=== PATIENT | female | born 1980 | race Caucasian/White ===

== ENCOUNTER 2019-11-28 17:14 | Observation (INO) | payer OTHER ==
[2019-11-28] MEDS ORDERED: Sodium Chloride 0.9% 1000 ML 1,000 ML IV STA ×2 (17:19→17:24)
[2019-11-28] MEDS ORDERED: Sodium Chloride 0.9% 1000 ML 1,000 ML ONE ×2 (17:25→17:31)
[2019-11-28 17:30] LABS: Lactic Acid 3.3 (0.4-2.0)
[2019-11-28 17:42] LABS: Absolute Neutrophil Ct (ANC) 13.14 (1.4-6.9); BASOPHIL % 0.3 % (0.0-0.4); Basophil (Absolute #) 0.05 (0-0.4); Eosinophil % 0.9 % (0.00-5.0); Eosinophil (Absolute #) 0.15 (0-0.5); Hemoglobin 15.7 gm/dl (12.0-16.0); Lymphocyte (Absolute #) 1.47 (1.0-4.6); Lymphocytes % 9.2 % (24.0-44.0); Mean Cell Volume 94.8 fl (78-100); Mean Corpuscular Hemoglobin 32.4 pg (26-32); Mean Corpuscular Hgb Concent. 34.1 g/dl (32-36); Mean Platelet Volume 10.2 fl (6-9.5); Monocyte (Absolute #) 1.16 (0.0-1.3); Monocytes % 7.3 % (0.0-12.0); Neutrophil % 82.3 % (36.0-66.0); Platelet Count 199 K/mm3 (150-450); Red Blood Count 4.85 M/mm3 (4.1-5.4); Red Cell Distribution Width 12.4 % (11.5-14.0)
--- NOTE | 2019-11-28 17:49 | ERPHSYRPT ---
- History of Present Illness Time Seen by Provider: 11/28/19 17:47 Source: patient Exam Limitations: no limitations Patient Subjective Stated Complaint: pt brought down from [facility] for a syncopal episode while waiting to be seen, Triage Nursing Assessment: pt is moaning, eyes open,pt has not felt well for last 2 days, other in family have had the flu Physician History: pt brought down from [facility] for a syncopal episode while waiting to be seen , pt has not felt well for last 2 days, other in family have had the flu Witnessed: by family Prior Episodes: single episode today Timing/Duration: today Precipitating Factors: other (recent flu) Loss of Consciousness: brief (seconds) Charcter of event(s): felt faint, almost passed out Allergies/Adverse Reactions: No Known Drug Allergies Allergy (Unverified 11/28/19 17:26) Home Medications: Simvastatin 20 mg DAILY 11/28/19 [History] lamoTRIgine [Lamotrigine] 50 mg BID 11/28/19 [History] Hx Influenza Vaccination/Date Given: Yes Hx Pneumococcal Vaccination/Date Given: No Immunizations Up to Date: Yes - Past Medical History Pertinent Past Medical History: Yes Neurological History: Seizures Cardiac History: Congenital Heart Disease, Other - Past Surgical History Past Surgical History: Yes Cardiac: Vascular Surgery - Social History Smoking Status: Never smoker Exposure to second hand smoke: No Drug Use: none Patient Lives Alone: No - Female History Hx Last Menstrual Period: unsure Hx Now: No - Review of Systems Constitutional: Fever, Chills Eyes: No Symptoms Ears, Nose, & Throat: No Symptoms Respiratory: Cough, No Dyspnea Cardiac: No Chest Pain, No Edema, No Syncope Abdominal/Gastrointestinal: No Abdominal Pain, No Nausea, No Vomiting, No Diarrhea Genitourinary Symptoms: No Dysuria Musculoskeletal: No Back Pain, No Neck Pain Skin: No Rash Neurological: No Dizziness, No Focal Weakness, No Sensory Changes Psychological: No Symptoms Endocrine: No Symptoms All Other Systems: Reviewed and Negative Physical Exam - Nursing Vital Signs Nursing Vital Signs: Initial Vital Signs O2 Sat by Pulse Oximetry 95 11/28/19 17:29 Pain Scale Pain Intensity 0 - [place] Coma Scale Best Eye Response (David): (4) open spontaneously Best Verbal Response ([place]): (5) oriented Best Motor Response ([place]): (6) obeys commands David Total: 15 - Physical Exam General Appearance: no apparent distress, alert Eye Exam: bilateral eye: PERRL, EOMI Ears, Nose, Throat Exam: normal ENT inspection, pharynx normal, moist mucous membranes Neck Exam: normal inspection, non-tender, supple, full range of motion Respiratory: wheezing, No chest tenderness, No respiratory distress Cardiovascular: regular rate/rhythm, capillary refill <2 sec, No murmur, No pulse deficit Gastrointestinal: soft, No tenderness, No distention, No mass Back Exam: normal inspection, normal range of motion, No CVA tenderness, No vertebral tenderness Extremity Exam: normal inspection, normal range of motion, pelvis stable, No tenderness Mental Status: alert, oriented x 3, 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 Exam: normal speech, PERRL, No facial droop Coordination/Gait: normal finger to nose Motor/Sensory: no motor deficit, no sensory deficit, no pronator drift Skin Exam: normal color, warm, dry, No rash SpO2: 95 - Course Nursing assessment & vital signs reviewed: Yes EKG Interpreted by Me: Sinus Rhythm - Radiology Exams Chest X-ray Interpretation: Reviewed by me (bibasilar infiltrate) Ordered Tests: Active Orders 24 hr Category Date Time Status Focuser STAT Care 11/28/19 17:19 Active IV Insertion STAT Care 11/28/19 17:19 Active Pulse Oximetry (ED) STAT Care 11/28/19 17:19 Active Pulse Oximetry (ED) STAT Care 11/28/19 17:19 Active CHEST 1 VIEW (PORTABLE) Stat Exams 11/28/19 17:20 Taken BLOOD CULTURE Stat Lab 11/28/19 17:37 Received CBC W DIFF Stat Lab 11/28/19 17:37 Completed CMP Stat Lab 11/28/19 17:37 Completed Lactic Acid Stat Lab 11/28/19 17:19 Results Respiratory Therapy Assessment DAILY RT 11/28/19 17:19 Active Medication Summary Generic Name Dose Route Start Last Admin Trade Name Freq PRN Reason Stop Dose Admin Sodium Chloride 1,000 mls @ 999 mls/hr 11/28/19 17:19 11/28/19 17:31 Sodium Chloride 0.9% 1000 Ml IV 11/28/19 18:19 999 mls/hr .Q1H1M STA Administration Sodium Chloride 1,000 mls @ 999 mls/hr 11/28/19 17:24 Sodium Chloride 0.9% 1000 Ml IV 11/28/19 18:24 .Q1H1M STA Ceftriaxone Sodium/Dextrose 1 g in 50 mls @ 100 mls/hr 11/28/19 17:59 Rocephin 1 Gm-D5w 50 Ml Bag IV 11/28/19 18:28 STAT STA Azithromycin 500 mg in 250 mls @ 250 mls/hr 11/28/19 17:59 Zithromax 500 Mg/ 250 Ml Nacl Premix IV 11/28/19 18:58 STAT STA Discontinued Medications Generic Name Dose Route Start Last Admin Trade Name Freq PRN Reason Stop Dose Admin Sodium Chloride Confirm 11/28/19 17:25 Sodium Chloride 0.9% 1000 Ml Administered 11/28/19 17:26 Dose 1,000 mls @ ud .ROUTE .STK-MED ONE Sodium Chloride Confirm 11/28/19 17:31 Sodium Chloride 0.9% 1000 Ml Administered 11/28/19 17:32 Dose 1,000 mls @ ud .ROUTE .STK-MED ONE Oseltamivir Phosphate 75 mg 11/28/19 18:03 Tamiflu 75mg Capsule PO 11/28/19 18:04 STAT ONE Lab/Rad Data: Laboratory Result Diagrams 11/28/19 17:37 11/28/19 17:37 Laboratory Results 11/28/19 11/28/19 11/28/19 Range/Units 17:37 17:37 17:19 WBC 16.0 H (4.0-10.5) K/mm3 RBC 4.85 (4.1-5.4) M/mm3 Hgb 15.7 (12.0-16.0) gm/dl Hct 46.0 (35-47) % MCV 94.8 (78-100) fl MCH 32.4 H (26-32) pg MCHC 34.1 (32-36) g/dl RDW 12.4 (11.5-14.0) % Plt Count 199 (150-450) K/mm3 MPV 10.2 H (6-9.5) fl Gran % 82.3 H (36.0-66.0) % Eos # (Auto) 0.15 (0-0.5) Absolute Lymphs (auto) 1.47 (1.0-4.6) Absolute Monos (auto) 1.16 (0.0-1.3) Lymphocytes % 9.2 L (24.0-44.0) % Monocytes % 7.3 (0.0-12.0) % Eosinophils % 0.9 (0.00-5.0) % Basophils % 0.3 (0.0-0.4) % Absolute Granulocytes 13.14 H (1.4-6.9) Basophils # 0.05 (0-0.4) Sodium 142 (137-145) mmol/L Potassium 3.9 (3.5-5.1) mmol/L Chloride 108 H (98-107) mmol/L Carbon Dioxide 21 L (22-30) mmol/L Anion Gap 16.5 H (5-15) MEQ/L BUN 7 (7-17) mg/dL Creatinine 0.54 (0.52-1.04) mg/dL Estimated GFR > 60.0 ML/MIN Glucose 133 H (74-106) mg/dL Lactic Acid 3.3 H (0.4-2.0) Calcium 10.2 (8.4-10.2) mg/dL Total Bilirubin 0.70 (0.2-1.3) mg/dL AST 26 (14-36) U/L ALT 21 (0-35) U/L Alkaline Phosphatase 72 (38-126) U/L Serum Total Protein 8.6 H (6.3-8.2) g/dL Albumin 4.9 (3.5-5.0) g/dL - Progress Progress: improved Discussed with : Abdifatah Macdonald Counseled pt/family regarding: lab results, diagnosis, need for follow-up, rad results - Departure Departure Disposition: Observation Clinical Impression: Exposure to the flu Aspiration pneumonia Qualifiers: Aspiration pneumonia type: unspecified Laterality: bilateral Lung location: lower lobe of lung Qualified Code(s): J69.0 - Pneumonitis due to inhalation of food and vomit Condition: Fair Critical Care Time: Yes Critical Care Time(excluding separately billable procedures): Critical 30-74 mins Referrals: ISABELLE GALINDO [Primary Care Provider] -
[2019-11-28 17:53] LABS: ALBUMIN 4.9 g/dL (3.5-5.0); ALKALINE PHOSPHATASE 72 U/L (38-126); ANION GAP 16.5 MEQ/L (5-15); BLOOD UREA NITROGEN 7 mg/dL (7-17); CHLORIDE 108 mmol/L (98-107); Calcium 10.2 mg/dL (8.4-10.2); Carbon Dioxide 21 mmol/L (22-30); Creatinine 1 0.54 mg/dL (0.52-1.04); Glucose 133 mg/dL (74-106); Potassium 3.9 mmol/L (3.5-5.1); SGOT/AST 26 U/L (14-36); SGPT/ALT 21 U/L (0-35); SODIUM 142 mmol/L (137-145); Total Protein 8.6 g/dL (6.3-8.2)
[2019-11-28] MEDS ORDERED: Zithromax 500 MG/ 250 ML NaCl Premix 500 MG/250 ML IVPB IV STA (17:59)
[2019-11-28] MEDS ORDERED: ROCEPHIN 1 Gm-D5w 50 ml Bag** 1 G/50 ML IVPB IV STA (17:59)
[2019-11-28] MEDS ORDERED: Tamiflu 75MG Capsule PO ONE (18:03)
[2019-11-28] MEDS ORDERED: ROCEPHIN 1 Gm-D5w 50 ml Bag** 1 G/50 ML IVPB IV ONE (18:12)
[2019-11-28 18:13] LABS: INFLUENZA A NEGATIVE (NEGATIVE); INFLUENZA B NEGATIVE (NEGATIVE); RESPIRATORY SYNCTIAL VIRUS NEGATIVE (Negative)
[2019-11-28] MEDS: TYLENOL 325 MG PO PRN (20:55)
[2019-11-28] MEDS: Sodium Chloride 0.9% 1000 ML 1,000 ML IV SCH (20:55)
[2019-11-28] MEDS: ZOCOR 20MG PO SCH (20:56)
[2019-11-28] MEDS: lamICTAL 100MG TABLET PO SCH (20:57)
[2019-11-28] MEDS ORDERED: PROVENTIL COMMON CANISTER IH PRN (21:13)
[2019-11-28] MEDS ORDERED: MORPHINE SULFATE 4 MG INJ IV PRN (21:34)
[2019-11-28] MEDS ORDERED: Zithromax 500 MG/ 250 ML NaCl Premix 500 MG/250 ML IVPB IV SCH (22:00)
--- NOTE | 2019-11-28 22:09 | XRAY ---
Indication: Cough, congestion, and wheezing. Comparison: September 29, 2019. Portable chest demonstrates new mild right base infiltrate/atelectasis. Minimal left base fibrosis/scarring. Remaining heart and lungs unremarkable. Bony thorax intact.
[2019-11-28] MEDS ORDERED: Norco 10/325 MG Tablet PO PRN (22:36)
[2019-11-29 06:25] LABS: Absolute Neutrophil Ct (ANC) 7.04 (1.4-6.9); BASOPHIL % 0.2 % (0.0-0.4); Basophil (Absolute #) 0.02 (0-0.4); Eosinophil % 0.8 % (0.00-5.0); Eosinophil (Absolute #) 0.07 (0-0.5); Hematocrit 40.1 % (35-47); Hemoglobin 13.3 gm/dl (12.0-16.0); Lymphocyte (Absolute #) 0.85 (1.0-4.6); Mean Cell Volume 97.6 fl (78-100); Mean Corpuscular Hemoglobin 32.4 pg (26-32); Mean Corpuscular Hgb Concent. 33.2 g/dl (32-36); Mean Platelet Volume 10.1 fl (6-9.5); Monocyte (Absolute #) 0.56 (0.0-1.3); Monocytes % 6.6 % (0.0-12.0); Neutrophil % 82.4 % (36.0-66.0); Platelet Count 162 K/mm3 (150-450); Red Blood Count 4.11 M/mm3 (4.1-5.4); Red Cell Distribution Width 12.3 % (11.5-14.0); White Blood Count 8.5 K/mm3 (4.0-10.5)
[2019-11-29 06:43] LABS: ANION GAP 9.4 MEQ/L (5-15); BLOOD UREA NITROGEN 3 mg/dL (7-17); CHLORIDE 113 mmol/L (98-107); Calcium 8.5 mg/dL (8.4-10.2); Carbon Dioxide 22 mmol/L (22-30); Creatinine 1 0.51 mg/dL (0.52-1.04); Glucose 115 mg/dL (74-106); Potassium 3.7 mmol/L (3.5-5.1); SODIUM 141 mmol/L (137-145)
--- NOTE | 2019-11-29 09:26 | PCM.HP ---
History of Present Illness - Chief Complaint Chief Complaint: Pneumonia History of Present Illness: is a 39 year old female with a 2 day history of cough with green sputum and feeling poorly, no known fever. she was waiting yesterday to be seen in [place] and passed out, she states this has happened in the past with pneumonia. She has a history of asthma, states she is a nonsmoker and has had multiple bouts of pneumonia in the past. - Review of Systems Constitutional: No Fever, No Chills Respiratory: Cough, Short Of Breath Cardiac: Chest Pain, Syncope Abdominal/Gastrointestinal: No Abdominal Pain, No Nausea, No Vomiting, No Diarrhea Skin: No Rash All Other Systems: Reviewed and Negative Medications & Allergies Home Medications: Home Medication List Simvastatin 20 mg PO HS 11/28/19 [History Confirmed 11/28/19] lamoTRIgine [Lamotrigine] 100 mg PO BID 11/28/19 [History Confirmed 11/28/19] Allergies/Adverse Reactions: Allergies Allergy/AdvReac Type Severity Reaction Status Date / Time No Known Drug Allergies Allergy Unverified 11/28/19 17:26 - Past Medical History Past Medical History: Yes Neurological History: Seizures ENT History: No Pertinent History Cardiac History: Congenital Heart Disease, Other Respiratory History: Pneumonia Endocrine Medical History: No Pertinent History Musculoskelatal History: Arthritis GI Medical History: No Pertinent History History: No Pertinent History Pyscho-Social History: No Pertinent History Reproductive Disorders: Endometriosis - Female History Hx Last Menstrual Period: August 2019 Are you now?: No - Past Surgical History Past Surgical History: Yes Neuro Surgical History: No Pertinent History Cardiac History: Vascular Surgery Respiratory Surgery: No Pertinent History GI Surgical History: No Pertinent History Genitourinary Surgical Hx: No Pertinent History Musculskeletal Surgical Hx: No Pertinent History Female Surgical History: No Pertinent History - Social History Smoking Status: Never smoker Exposure to second hand smoke: No Alcohol: None Drug Use: none - Physical Exam Vital Signs: Vital Signs - 24 hr Temp Pulse Resp BP Pulse Ox 11/29/19 07:56 96 11/29/19 07:16 98.7 F 100 H 18 109/59 98 11/29/19 03:51 99.1 F 99 H 12 98/53 92 L 11/28/19 23:44 99.7 F 118 H 22 109/68 93 L 12/28/19 21:14 119 H 20 94 L 12/28/19 20:00 100.1 F 122 H 19 115/61 96 11/28/19 19:54 100.1 F 122 H 19 115/61 96 11/28/19 18:11 95 11/28/19 17:29 95 Oxygen-Last 24 hours O2 Percentage 2 Liters = 28% General Appearance: no apparent distress Neurologic Exam: alert, oriented x 3 Respiratory Exam: rhonchi Cardiovascular Exam: regular rate/rhythm, normal heart sounds, normal peripheral pulses Gastrointestinal/Abdomen Exam: soft, normal bowel sounds, No tenderness, No mass Extremity Exam: normal inspection, normal range of motion, pelvis stable Skin Exam: normal color, warm, dry, No rash Results - Labs Lab/Micro Results: Lab Results-Last 24 Hours 11/28/19 11/28/19 11/28/19 Range/Units 17:19 17:37 17:37 WBC 16.0 H (4.0-10.5) K/mm3 RBC 4.85 (4.1-5.4) M/mm3 Hgb 15.7 (12.0-16.0) gm/dl Hct 46.0 (35-47) % MCV 94.8 (78-100) fl MCH 32.4 H (26-32) pg MCHC 34.1 (32-36) g/dl RDW 12.4 (11.5-14.0) % Plt Count 199 (150-450) K/mm3 MPV 10.2 H (6-9.5) fl Gran % 82.3 H (36.0-66.0) % Eos # (Auto) 0.15 (0-0.5) Absolute Lymphs (auto) 1.47 (1.0-4.6) Absolute Monos (auto) 1.16 (0.0-1.3) Lymphocytes % 9.2 L (24.0-44.0) % Monocytes % 7.3 (0.0-12.0) % Eosinophils % 0.9 (0.00-5.0) % Basophils % 0.3 (0.0-0.4) % Absolute Granulocytes 13.14 H (1.4-6.9) Basophils # 0.05 (0-0.4) D-Dimer (215-500) ng/mL Sodium 142 (137-145) mmol/L Potassium 3.9 (3.5-5.1) mmol/L Chloride 108 H (98-107) mmol/L Carbon Dioxide 21 L (22-30) mmol/L Anion Gap 16.5 H (5-15) MEQ/L BUN 7 (7-17) mg/dL Creatinine 0.54 (0.52-1.04) mg/dL Estimated GFR > 60.0 ML/MIN Glucose 133 H (74-106) mg/dL Lactic Acid 3.3 H (0.4-2.0) Calcium 10.2 (8.4-10.2) mg/dL Total Bilirubin 0.70 (0.2-1.3) mg/dL AST 26 (14-36) U/L ALT 21 (0-35) U/L Alkaline Phosphatase 72 (38-126) U/L Troponin I (0.000-0.034) ng/mL Serum Total Protein 8.6 H (6.3-8.2) g/dL Albumin 4.9 (3.5-5.0) g/dL Influenza Type A Ag (NEGATIVE) Influenza Type B Ag (NEGATIVE) RSV (PCR) (Negative) 11/28/19 11/28/19 11/28/19 Range/Units 17:37 19:40 21:46 WBC (4.0-10.5) K/mm3 RBC (4.1-5.4) M/mm3 Hgb (12.0-16.0) gm/dl Hct (35-47) % MCV (78-100) fl MCH (26-32) pg MCHC (32-36) g/dl RDW (11.5-14.0) % Plt Count (150-450) K/mm3 MPV (6-9.5) fl Gran % (36.0-66.0) % Eos # (Auto) (0-0.5) Absolute Lymphs (auto) (1.0-4.6) Absolute Monos (auto) (0.0-1.3) Lymphocytes % (24.0-44.0) % Monocytes % (0.0-12.0) % Eosinophils % (0.00-5.0) % Basophils % (0.0-0.4) % Absolute Granulocytes (1.4-6.9) Basophils # (0-0.4) D-Dimer (215-500) ng/mL Sodium (137-145) mmol/L Potassium (3.5-5.1) mmol/L Chloride (98-107) mmol/L Carbon Dioxide (22-30) mmol/L Anion Gap (5-15) MEQ/L BUN (7-17) mg/dL Creatinine (0.52-1.04) mg/dL Estimated GFR ML/MIN Glucose (74-106) mg/dL Lactic Acid 1.5 (0.4-2.0) Calcium (8.4-10.2) mg/dL Total Bilirubin (0.2-1.3) mg/dL AST (14-36) U/L ALT (0-35) U/L Alkaline Phosphatase (38-126) U/L Troponin I < 0.012 (0.000-0.034) ng/mL Serum Total Protein (6.3-8.2) g/dL Albumin (3.5-5.0) g/dL Influenza Type A Ag NEGATIVE (NEGATIVE) Influenza Type B Ag NEGATIVE (NEGATIVE) RSV (PCR) NEGATIVE (Negative) 11/28/19 11/29/19 11/29/19 Range/Units 21:46 06:02 06:02 WBC 8.5 (4.0-10.5) K/mm3 RBC 4.11 (4.1-5.4) M/mm3 Hgb 13.3 (12.0-16.0) gm/dl Hct 40.1 (35-47) % MCV 97.6 (78-100) fl MCH 32.4 H (26-32) pg MCHC 33.2 (32-36) g/dl RDW 12.3 (11.5-14.0) % Plt Count 162 (150-450) K/mm3 MPV 10.1 H (6-9.5) fl Gran % 82.4 H (36.0-66.0) % Eos # (Auto) 0.07 (0-0.5) Absolute Lymphs (auto) 0.85 L (1.0-4.6) Absolute Monos (auto) 0.56 (0.0-1.3) Lymphocytes % 10.0 L (24.0-44.0) % Monocytes % 6.6 (0.0-12.0) % Eosinophils % 0.8 (0.00-5.0) % Basophils % 0.2 (0.0-0.4) % Absolute Granulocytes 7.04 H (1.4-6.9) Basophils # 0.02 (0-0.4) D-Dimer 451 (215-500) ng/mL Sodium 141 (137-145) mmol/L Potassium 3.7 (3.5-5.1) mmol/L Chloride 113 H (98-107) mmol/L Carbon Dioxide 22 (22-30) mmol/L Anion Gap 9.4 (5-15) MEQ/L BUN 3 L (7-17) mg/dL Creatinine 0.51 L (0.52-1.04) mg/dL Estimated GFR > 60.0 ML/MIN Glucose 115 H (74-106) mg/dL Lactic Acid (0.4-2.0) Calcium 8.5 D (8.4-10.2) mg/dL Total Bilirubin (0.2-1.3) mg/dL AST (14-36) U/L ALT (0-35) U/L Alkaline Phosphatase (38-126) U/L Troponin I (0.000-0.034) ng/mL Serum Total Protein (6.3-8.2) g/dL Albumin (3.5-5.0) g/dL Influenza Type A Ag (NEGATIVE) Influenza Type B Ag (NEGATIVE) RSV (PCR) (Negative) - Radiology Impressions Radiology Exams & Impressions: Radiology Procedures Category Date Time Status CHEST 1 VIEW (PORTABLE) Stat Exams 11/28/19 17:20 Completed CHEST 2 VIEWS (PA AND LAT) Routine Exams 11/29/19 18:49 Ordered - Other Procedures and Tests Respiratory Therapy 11/28/19 21:12 Flutter Therapy UD Incentive Spirometry UD Assessment/Plan (1) Pneumonia Current Visit: Yes Status: Acute Assessment & Plan: continue rocephin and zithromax, had severe pleuritic chest pain last night but better today. ekg unremarkable and d-dimer and troponin were negative. Code(s): J18.9 - PNEUMONIA, UNSPECIFIED ORGANISM (2) Syncope Current Visit: Yes Status: Acute Code(s): R55 - SYNCOPE AND COLLAPSE
[2019-11-29] MEDS: lamICTAL 100MG TABLET PO SCH ×2 (09:28→21:38)
[2019-11-29] MEDS ORDERED: Zithromax 500 MG/ 250 ML NaCl Premix 250 ML IV SCH (10:00)
[2019-11-29] MEDS ORDERED: ROCEPHIN 1 Gm-D5w 50 ml Bag** 1 G/50 ML IVPB IV SCH (18:00)
[2019-11-29] MEDS: TYLENOL 325 MG PO PRN (20:02)
--- NOTE | 2019-11-29 20:16 | XRAY ---
Indication: Fever and cough. Comparison: One day earlier. PA/lateral chest demonstrate stable right base infiltrate/atelectasis, left base fibrosis/scarring, and coils overlying the aortic arch. New tiny nonspecific left effusion. Remaining heart, upper lungs, and bony thorax normal. Comment: Preliminary interpretation was made by [facility]. No critical discrepancy.
[2019-11-29] MEDS: ZOCOR 20MG PO SCH (21:38)
[2019-11-30] MEDS: Sodium Chloride 0.9% 1000 ML 1,000 ML IV SCH ×2 (00:55→03:02)
[2019-11-30 05:28] LABS: Absolute Neutrophil Ct (ANC) 6.61 (1.4-6.9); BASOPHIL % 0.4 % (0.0-0.4); Basophil (Absolute #) 0.03 (0-0.4); Eosinophil % 0.4 % (0.00-5.0); Eosinophil (Absolute #) 0.03 (0-0.5); Lymphocyte (Absolute #) 1.05 (1.0-4.6); Lymphocytes % 12.6 % (24.0-44.0); Mean Corpuscular Hemoglobin 32.3 pg (26-32); Mean Corpuscular Hgb Concent. 33.3 g/dl (32-36); Mean Platelet Volume 9.6 fl (6-9.5); Monocyte (Absolute #) 0.61 (0.0-1.3); Monocytes % 7.3 % (0.0-12.0); Neutrophil % 79.3 % (36.0-66.0); Platelet Count 164 K/mm3 (150-450); Red Blood Count 4.33 M/mm3 (4.1-5.4); Red Cell Distribution Width 12.5 % (11.5-14.0); White Blood Count 8.3 K/mm3 (4.0-10.5)
[2019-11-30 05:44] LABS: CHLORIDE 107 mmol/L (98-107); Calcium 9.2 mg/dL (8.4-10.2); Carbon Dioxide 24 mmol/L (22-30); Creatinine 1 0.53 mg/dL (0.52-1.04); Glucose 115 mg/dL (74-106); Potassium 3.8 mmol/L (3.5-5.1); SODIUM 140 mmol/L (137-145)
[2019-11-30 05:53] LABS: BLOOD UREA NITROGEN 2 mg/dL (7-17)
--- NOTE | 2019-11-30 08:25 | PCM.NOTE ---
Date and Time: 11/30/19823 Subjective Assessment: patient is feeling better today, still requiring oxygen but pain in her chest is much improved Objective Exam General Appearance: no apparent distress, mild distress Neurologic Exam: alert, oriented x 3 Respiratory Exam: wheezing Cardiovascular Exam: regular rate/rhythm, normal heart sounds Gastrointestinal/Abdomen Exam: soft, No tenderness, No mass OBJECTIVE DATA Vital Signs: Vital Signs - 24 hr Temp Pulse Resp BP Pulse Ox 11/30/19 07:15 98.8 F 101 H 18 129/65 98 11/30/19 03:38 99.1 F 108 H 18 121/75 94 L 11/30/19 00:00 99.2 F 106 H 16 121/65 93 L 11/29/19 20:25 92 L 11/29/19 19:55 100.6 F 116 H 28 H 120/67 92 L 11/29/19 16:00 98.6 F 90 18 118/64 93 L 11/29/19 12:50 98.7 F 98 H 18 121/65 95 Oxygen-Last 24 hours O2 Percentage 2 Liters = 28% O2 Percentage 2 Liters = 28% Pain Assessment - Last Documented Pain Intensity 0 Pain Scale Used 0-10 Pain Scale Intake and Output: Intake & Output 11/27/19 11/28/19 11/29/19 11/30/19 11:59 11:59 11:59 11:59 Intake Total 1415 2016 Output Total 400 1150 Balance 1015 866 Weight 55.6 kg Lab Results: Lab Results-Last 24 Hours 11/30/19 11/30/19 Range/Units 05:23 05:23 WBC 8.3 (4.0-10.5) K/mm3 RBC 4.33 (4.1-5.4) M/mm3 Hgb 14.0 (12.0-16.0) gm/dl Hct 42.0 (35-47) % MCV 97.0 (78-100) fl MCH 32.3 H (26-32) pg MCHC 33.3 (32-36) g/dl RDW 12.5 (11.5-14.0) % Plt Count 164 (150-450) K/mm3 MPV 9.6 H (6-9.5) fl Gran % 79.3 H (36.0-66.0) % Eos # (Auto) 0.03 (0-0.5) Absolute Lymphs (auto) 1.05 (1.0-4.6) Absolute Monos (auto) 0.61 (0.0-1.3) Lymphocytes % 12.6 L (24.0-44.0) % Monocytes % 7.3 (0.0-12.0) % Eosinophils % 0.4 (0.00-5.0) % Basophils % 0.4 (0.0-0.4) % Absolute Granulocytes 6.61 (1.4-6.9) Basophils # 0.03 (0-0.4) Sodium 140 (137-145) mmol/L Potassium 3.8 (3.5-5.1) mmol/L Chloride 107 (98-107) mmol/L Carbon Dioxide 24 (22-30) mmol/L Anion Gap 12.0 (5-15) MEQ/L BUN 2 L (7-17) mg/dL Creatinine 0.53 (0.52-1.04) mg/dL Estimated GFR > 60.0 ML/MIN Glucose 115 H (74-106) mg/dL Calcium 9.2 (8.4-10.2) mg/dL Radiology Exams: Radiology Procedures Category Date Time Status CHEST 1 VIEW (PORTABLE) Stat Exams 11/28/19 17:20 Completed CHEST 2 VIEWS (PA AND LAT) Routine Exams 11/29/19 18:49 Completed Assessment/Plan (1) Pneumonia Current Visit: Yes Status: Acute Assessment & Plan: continue rocephin/zithromax Code(s): J18.9 - PNEUMONIA, UNSPECIFIED ORGANISM (2) Asthma exacerbation Current Visit: Yes Status: Acute Assessment & Plan: add po prednisone, home when weaned from oxygen. Code(s): J45.901 - UNSPECIFIED ASTHMA WITH (ACUTE) EXACERBATION (3) Syncope Current Visit: Yes Status: Acute Code(s): R55 - SYNCOPE AND COLLAPSE
[2019-11-30] MEDS ORDERED: DELTASONE 20 MG PO SCH (10:00)
[2019-11-30] MEDS: lamICTAL 100MG TABLET PO SCH (10:14)
--- NOTE | 2019-11-30 12:27 | PCM.DS ---
Discharge Summary Date of Admission: 11/28/19 18:43 Admitting Physician: STUART ROBIN Primary Care Provider: ISABELLE GALINDO Allergies Allergies No Known Drug Allergies Allergy (Unverified 11/28/19 17:26) Hospital Summary - Hospital Course Hospital Course: patient was admitted with cough, shortness of breath and chest pain. treated for pneumonia and asthma exacerbation, feeling much better and off of oxygen therapy today and felt ready for discharge. - Vitals & Intake/Output Vital Signs: Vital Signs Temperature 98.8 F 11/30/19 07:15 Pulse Rate 101 H 11/30/19 07:15 Respiratory Rate 18 11/30/19 07:15 Blood Pressure 129/65 11/30/19 07:15 O2 Sat by Pulse Oximetry 97 11/30/19 11:35 Oxygen-Last Documented O2 Percentage 2 Liters = 28% Intake & Output: Intake & Output 11/28/19 11/29/19 11/30/19 12/01/19 11:59 11:59 11:59 11:59 Intake Total 1415 2256 Output Total 400 1500 Balance 1015 756 Weight 55.6 kg - Lab Result Diagrams: 11/30/19 05:23 11/30/19 05:23 Lab Results-Last 24 Hrs: Lab Results-Last 24 Hours 11/30/19 11/30/19 Range/Units 05:23 05:23 WBC 8.3 (4.0-10.5) K/mm3 RBC 4.33 (4.1-5.4) M/mm3 Hgb 14.0 (12.0-16.0) gm/dl Hct 42.0 (35-47) % MCV 97.0 (78-100) fl MCH 32.3 H (26-32) pg MCHC 33.3 (32-36) g/dl RDW 12.5 (11.5-14.0) % Plt Count 164 (150-450) K/mm3 MPV 9.6 H (6-9.5) fl Gran % 79.3 H (36.0-66.0) % Eos # (Auto) 0.03 (0-0.5) Absolute Lymphs (auto) 1.05 (1.0-4.6) Absolute Monos (auto) 0.61 (0.0-1.3) Lymphocytes % 12.6 L (24.0-44.0) % Monocytes % 7.3 (0.0-12.0) % Eosinophils % 0.4 (0.00-5.0) % Basophils % 0.4 (0.0-0.4) % Absolute Granulocytes 6.61 (1.4-6.9) Basophils # 0.03 (0-0.4) Sodium 140 (137-145) mmol/L Potassium 3.8 (3.5-5.1) mmol/L Chloride 107 (98-107) mmol/L Carbon Dioxide 24 (22-30) mmol/L Anion Gap 12.0 (5-15) MEQ/L BUN 2 L (7-17) mg/dL Creatinine 0.53 (0.52-1.04) mg/dL Estimated GFR > 60.0 ML/MIN Glucose 115 H (74-106) mg/dL Calcium 9.2 (8.4-10.2) mg/dL Micro Results-Entire Visit: Microbiology 11/28/19 17:37 Blood Culture - Preliminary Blood NO GROWTH TO DATE 11/28/19 17:37 Blood Culture - Preliminary Blood NO GROWTH TO DATE - Radiology Exams Ordered Rad Exams-Entire Visit: Radiology Procedures Category Date Time Status CHEST 1 VIEW (PORTABLE) Stat Exams 11/28/19 17:20 Completed CHEST 2 VIEWS (PA AND LAT) Routine Exams 11/29/19 18:49 Completed - Procedures and Test Procedures and Tests throughout Hospitalization: Therapy Orders & Screens 11/28/19 18:49 Respiratory Therapy Consult ROUTINE Comment: Reason For Exam: Diagnosis: Pneumonia 11/28/19 21:12 Flutter Therapy UD Comment: Diagnosis: Pneumonia Incentive Spirometry UD Comment: Diagnosis: Pneumonia 11/28/19 21:29 EKG STAT Comment: Diagnosis: Pneumonia 11/30/19 00:55 Oxygen NASAL CANNULA 2 lpm Comment: Diagnosis: Pneumonia 11/30/19 11:34 Respiratory Therapy Assessment DAILY Comment: Diagnosis: Pneumonia Discharge Exam General Appearance: no apparent distress, alert Neurologic Exam: alert, oriented x 3, cooperative, normal mood/affect, nml cerebellar function, sensation nml, No motor deficits Eye Exam: PERRL, EOMI, eyes nml inspection Respiratory Exam: wheezing, No respiratory distress, No accessory muscle use Cardiovascular Exam: regular rate/rhythm, normal heart sounds Gastrointestinal/Abdomen Exam: soft, No tenderness, No mass Final Diagnosis/Problem List - Final Discharge Diagnosis/Problem (1) Pneumonia Current Visit: Yes Status: Acute Code(s): J18.9 - PNEUMONIA, UNSPECIFIED ORGANISM (2) Asthma exacerbation Current Visit: Yes Status: Acute Code(s): J45.901 - UNSPECIFIED ASTHMA WITH (ACUTE) EXACERBATION (3) Syncope Current Visit: Yes Status: Acute Code(s): R55 - SYNCOPE AND COLLAPSE - Discharge Disposition: Home, Self-Care Condition: Good Prescriptions: New Prednisone 20 mg [Deltasone 20 mg] 40 mg PO DAILY #14 tablet Levofloxacin [Levaquin] 500 mg PO DAILY #5 tablet Albuterol Sulfate [Proair Hfa] 2 puff IH Q4-6HPRN PRN #2 [email or web address] PRN Reason: Cough Continue lamoTRIgine [Lamotrigine] 100 mg PO BID Simvastatin 20 mg PO HS Follow up with: ISABELLE GALINDO [Primary Care Provider] - 12/07/19 1:45 pm
[2019-11-30 12:31] VITALS: BP 120/66; PULSE 96; O2SAT 93
== END 2019-11-30 13:25 | disposition home or self-care (01) ==
LOC: ED 17:14 → MED SURG 18:43
PROVIDERS: ADMIT Family Medicine; ATTEND Family Medicine
DX: J18.9 Pneumonia, unspecified organism (principal); J45.901 Unspecified asthma with (acute) exacerbation; R55 Syncope and collapse; Z79.899 Other long term (current) drug therapy
CPT/HCPCS: 36000; 36415; 71045; 71046; 80048; 80053; 83605; 84484; 85025; 85379; 87040; 87631; 93005; 93041; 93268; 94667; 94760; 94762; 96360; 96365; 99285; 99291; J0456; J0696; J2270; A9270-GY; G0378

== ENCOUNTER 2021-12-05 06:29 | Day surgery (SDC) | payer BC ==
[2021-12-05] MEDS ORDERED: Lactated Ringers 1,000 ML IV SCH (06:30)
[2021-12-05] MEDS ORDERED: Sensorcaine 0.25% 10 ML ONE (06:57)
[2021-12-05] MEDS ORDERED: Lactated Ringers 1,000 ML IV ONE ×2 (06:57→07:15)
[2021-12-05] MEDS ORDERED: KEFZOL 1 GM/50 ML PREMIX** 1 GM/50 ML IVPB IV SCH (07:15)
[2021-12-05] MEDS ORDERED: Versed 2 MG/2 ML Injection IV PRN (07:38)
[2021-12-05] MEDS ORDERED: Transderm Scop 1.5MG Patch ONE (07:44)
[2021-12-05] MEDS ORDERED: Transderm Scop 1.5MG Patch TOP PRN (07:47)
[2021-12-05] MEDS ORDERED: Xylocaine-Mpf 2% 5 Ml Vial ONE (08:38)
[2021-12-05] MEDS ORDERED: Zemuron 100 MG/10 ML ONE (08:38)
[2021-12-05] MEDS ORDERED: Quelicin Fliptop 200 MG/10 ML ONE (08:38)
[2021-12-05] MEDS ORDERED: Zofran 4 MG/2 ML VIAL ONE (08:38)
[2021-12-05] MEDS ORDERED: DIPRIVAN 200 MG/20 ML IV ONE (08:38)
[2021-12-05] MEDS ORDERED: SUBLIMAZE 100 MCG/2 ML ONE ×2 (08:39→09:36)
[2021-12-05] MEDS ORDERED: Pre-Attached Lta Kit TP ONE (08:41)
[2021-12-05] MEDS ORDERED: BRIDION 200MG/2ML IV ONE (09:12)
[2021-12-05] MEDS ORDERED: Decadron 4 MG INJ ONE (09:17)
[2021-12-05] MEDS ORDERED: TORAdol 30 mg Injection ONE (09:17)
[2021-12-05] MEDS ORDERED: ATROPINE SULFATE 1MG ONE (09:41)
[2021-12-05 12:42] VITALS: BP 98/61; PULSE 62; O2SAT 96
--- NOTE | 2021-12-06 08:50 | OP ---
SURGERY DATE/TIME: 12/05/2021 0841 PREOPERATIVE DIAGNOSIS: Chronic pelvic pain. POSTOPERATIVE DIAGNOSIS: Chronic pelvic pain. PROCEDURE: Diagnostic laparoscopy. SURGEON: Natalio Chris D.O. TOOL MAKER BENCH: eber Gonzalez. ANESTHESIA: General. ESTIMATED BLOOD LOSS: Minimal. COMPLICATIONS: None. INDICATIONS: The risks, benefits, indications and alternatives of the procedure were reviewed with the patient prior to procedure. The patient understood the risk of infection, bleeding, bowel injury, bladder injury, ureteral injury, pelvic infection associated with the surgery and desires to have this surgery as a possible means to alleviate her current medical condition. DESCRIPTION OF PROCEDURE AND FINDINGS: At this point the patient is taken to the operating room, given general sedation, placed in the supine position where she was prepped and draped in the usual sterile fashion. A 5 mm skin incision was made at the umbilical fold where a 5 mm trocar and sleeve were advanced under direct visualization where pneumoperitoneum was obtained with 4 liters of CO2 gas. An additional incision was made in the left lower quadrant region where a 5 mm trocar and sleeve were advanced under direct visualization. A survey of the patient's pelvic anatomy revealed entirely normal anatomy with no gross abnormalities and there were no adhesions that were located within the pelvic region. The uterus appeared to be within normal limits. The patient did appear to have a history of previous right oophorectomy where the right fallopian tube was identified. However, there was no right ovary that was noted. The patient does have a history of previous laparoscopy. The patient was noted to have a normal left adnexa, normal left ovary and tube and the appendix appeared to be within normal limits. There no adhesions located between the bowel and the side wall. There were no adhesions located on the lower pelvic structures. Survey of the patient's upper abdomen appeared to be within normal limits. From this point all instruments were removed from the patient's abdominal region. The incisions was closed with 4-0 Monocryl suture. The patient was then taken out of anesthesia and was then taken to the recovery room in stable condition. All instruments and laps were accounted for x2.
== END 2021-12-05 11:55 | disposition home or self-care (01) ==
LOC: SDC 06:29
PROVIDERS: ATTEND Obstetrics & Gynecology
DX: R10.2 Pelvic and perineal pain (principal)
CPT/HCPCS: 84703; J0330; J0461; J0690; J1100; J1885; J2250; J2405; J2704; J3010; A9270-GY

== ENCOUNTER 2021-12-09 11:36 | Emergency (ER) | payer BC ==
[2021-12-09] MEDS ORDERED: solu-MEDROL 125 MG, Sterile H2O 10 ml 2 ML IV ONE ×2 (12:02)
[2021-12-09] MEDS ORDERED: DUONEB 0.5-3 MG/3 ml Neb IH ONE (12:02)
[2021-12-09] MEDS ORDERED: solu-MEDROL ONE (12:08)
--- NOTE | 2021-12-09 12:09 | ERPHSYRPT ---
- History of Present Illness Time Seen by Provider: 12/09/21 11:44 Source: patient Exam Limitations: no limitations Patient Subjective Stated Complaint: pt c/o of SOB, cough, sore throat, loss of taste and smell, diarrhea, and headache for the past 2 days Triage Nursing Assessment: Pt brought to the ER by her , vitals wnl, rates overal lung pain as 4/10, appears weak and lethargic, last intake last night, last bowel movement last night, states that she is taking in fluids okay, had laprascopic surgery on Saturday and thought she was feeling bad due to that but now thinks otherwise, pulses normal, skin n/w/d, sent over by [facility] care Physician History: 31-year-old female status post diagnostic laparoscopy 4 days ago presented in the ER with 2-day history of nasal/sinus congestion, sore throat, nonproductive cough and bilateral lung pain especially with deep breathing. Reports increasing shortness of breath with activity and subjective feeling of fever and chills. Unvaccinated for COVID-19. Denies any known sick contact. Timing/Duration: day(s) (2), constant, gradual onset, worse Cough Quality/Degree: moderate, dry cough Possible Cause: unknown cause Modifying Factors: Worsens With: coughing, deep breath, exertion Associated Symptoms: chest pain/soreness, cough, headache, muscle aches, nasal congestion, shortness of breath, sinus infection, sore throat Allergies/Adverse Reactions: No Known Drug Allergies Allergy (Verified 12/09/21 11:49) Home Medications: Levetiracetam [Keppra 500 mg ] 500 mg PO BID 12/04/21 [History] Montelukast Sodium 10 mg [Singulair 10 MG] 10 mg PO DAILY 12/04/21 [History] Hx Influenza Vaccination/Date Given: Yes Hx Pneumococcal Vaccination/Date Given: No Travel Risk - International Travel Have you traveled outside of the country in past 3 weeks: No - Coronavirus Screening Are you exhibiting any of the following symptoms?: No Symptoms: Cough: New Onset, Shortness of Breath, Vomiting/Diarrhea, Loss of Taste or Smell, Headaches/Body Aches/Fatigue - Vaccine Status Have you recieved a Covid-19 vaccination: No - Review of Systems Constitutional: Fatigue, Weakness Eyes: No Symptoms Ears, Nose, & Throat: Nose Congestion Respiratory: Cough, Dyspnea Cardiac: Chest Pain Abdominal/Gastrointestinal: No Symptoms Genitourinary Symptoms: No Symptoms Musculoskeletal: Myalgias Neurological: Headache Psychological: No Symptoms Endocrine: No Symptoms Hematologic/Lymphatic: No Symptoms Immunological/Allergic: No Symptoms - Past Medical History Pertinent Past Medical History: Yes Neurological History: Seizures ENT History: No Pertinent History Cardiac History: Congenital Heart Disease, Other Respiratory History: Asthma, Pneumonia Endocrine Medical History: No Pertinent History Musculoskeletal History: Arthritis GI Medical History: No Pertinent History History: No Pertinent History Psycho-Social History: No Pertinent History Female Reproductive Disorders: Endometriosis - Past Surgical History Past Surgical History: Yes Neuro Surgical History: No Pertinent History Cardiac: Vascular Surgery Respiratory: No Pertinent History Gastrointestinal: No Pertinent History Genitourinary: No Pertinent History Musculoskeletal: No Pertinent History Female Surgical History: No Pertinent History Other Surgical History: wrist surgery - Social History Smoking Status: Never smoker Exposure to second hand smoke: No Drug Use: none Patient Lives Alone: No - Female History Hx Now: (unkn) - Nursing Vital Signs Nursing Vital Signs: Initial Vital Signs Temperature 97.8 F 12/09/21 11:41 Pulse Rate 87 12/09/21 11:41 Respiratory Rate 17 12/09/21 11:41 Blood Pressure 113/84 12/09/21 11:41 O2 Sat by Pulse Oximetry 94 L 12/09/21 11:41 Pain Scale Pain Intensity 4 - Physical Exam General Appearance: alert, anxiety Eye Exam: PERRL/EOMI, eyes nml inspection Ears, Nose, Throat Exam: moist mucous membranes, pharyngeal erythema Neck Exam: normal inspection, non-tender, supple, full range of motion Respiratory Exam: normal breath sounds, lungs clear Cardiovascular Exam: regular rate/rhythm, normal heart sounds Back Exam: normal inspection, normal range of motion Extremity Exam: normal inspection, normal range of motion, pelvis stable Neurologic Exam: alert, oriented x 3, cooperative Skin Exam: normal color SpO2 Interpretation: normal SpO2: 95 O2 Delivery: Room Air - Course EKG Interpreted by Me: RATE ([id number]), Sinus Rhythm, NORMAL AXIS, NORMAL INTERVALS, NORMAL QRS Ordered Tests: Active Orders 24 hr Category Date Time Status Clinical Interviewer STAT Care 12/09/21 12:03 Completed EKG-ER Only STAT Care 12/09/21 12:02 Completed IV Insertion STAT Care 12/09/21 12:02 Completed Oxygen-ED Only Nasal Cannula 2 lpm Care 12/09/21 12:02 Completed CHEST WITH CONTRAST [CT] Stat Exams 12/09/21 12:03 Completed BLOOD CULTURE Stat Lab 12/09/21 12:17 Received CBC W DIFF Stat Lab 12/09/21 12:00 Completed CMP Stat Lab 12/09/21 12:00 Completed HCG,QUALITATIVE URINE Stat Lab 12/09/21 12:00 Completed Lactic Acid Stat Lab 12/09/21 12:02 Completed Lactic Acid Stat Lab 12/09/21 16:03 Received MAGNESIUM Stat Lab 12/09/21 12:00 Completed NT PRO BNP Stat Lab 12/09/21 12:00 Completed TROPONIN Q3H Lab 12/09/21 12:00 Completed UA W/RFX UR CULTURE Stat Lab 12/09/21 12:00 Completed Respiratory Therapy Assessment ONCE RT 12/09/21 13:44 Completed Medication Summary Discontinued Medications Generic Name Dose Route Start Last Admin Trade Name Freq PRN Reason Stop Dose Admin Albuterol Sulfate 4 puff 12/09/21 13:23 12/09/21 12:05 Albuterol Common Canister Inhaler 12/09/21 13:24 4 puff ONCE ONE Administration Albuterol/Ipratropium 3 ml 12/09/21 12:02 12/09/21 13:45 Ipratropium/Albuterol Sulfate 3 Ml Ampul.Neb 12/09/21 12:03 Not Given STAT ONE Methylprednisolone Sodium 0 mg 12/09/21 12:02 12/09/21 12:08 Succinate 125 mg/ Sterile IV 12/09/21 12:03 125 mg Water 2 ml STAT ONE Administration Sodium Chloride Confirm 12/09/21 12:50 Sodium Chloride 0.9% 1000 Ml Administered 12/09/21 12:51 Dose 1,000 mls @ ud .ROUTE .STK-MED ONE Sodium Chloride 1,000 mls @ 999 mls/hr 12/09/21 12:51 12/09/21 13:54 Sodium Chloride 0.9% 1000 Ml IV 12/09/21 13:51 Infused .Q1H1M STA Infusion Methylprednisolone Sodium Succinate Confirm 12/09/21 12:08 Methylprednis Sod Succ 125 Mg/2 Ml Vial Administered 12/09/21 12:09 Dose 125 mg .ROUTE .STK-MED ONE Lab/Rad Data: Laboratory Result Diagrams 12/09/21 12:00 12/09/21 12:00 Laboratory Results 12/09/21 12/09/21 12/09/21 Range/Units 12:02 12:00 12:00 WBC (4.0-10.5) K/mm3 RBC (4.1-5.4) M/mm3 Hgb (12.0-16.0) gm/dl Hct (35-47) % MCV (78-100) fl MCH (26-32) pg MCHC (32-36) g/dl RDW (11.5-14.0) % Plt Count (150-450) K/mm3 MPV (7.5-11.0) fl Gran % (36.0-66.0) % Eos # (Auto) (0-0.5) Absolute Lymphs (auto) (1.0-4.6) Absolute Monos (auto) (0.0-1.3) Lymphocytes % (24.0-44.0) % Monocytes % (0.0-12.0) % Eosinophils % (0.00-5.0) % Basophils % (0.0-0.4) % Absolute Granulocytes (1.4-6.9) Basophils # (0-0.4) Sodium (137-145) mmol/L Potassium (3.5-5.1) mmol/L Chloride (98-107) mmol/L Carbon Dioxide (22-30) mmol/L Anion Gap (5-15) MEQ/L BUN (7-17) mg/dL Creatinine (0.52-1.04) mg/dL Estimated GFR ML/MIN Glucose (74-106) mg/dL Lactic Acid 2.1 H (0.4-2.0) Calcium (8.4-10.2) mg/dL Magnesium (1.6-2.3) mg/dL Total Bilirubin (0.2-1.3) mg/dL AST (14-36) U/L ALT (0-35) U/L Alkaline Phosphatase (38-126) U/L Troponin I < 0.012 (0.000-0.034) ng/mL NT-Pro-B Natriuret Pep (0-450) pg/mL Serum Total Protein (6.3-8.2) g/dL Albumin (3.5-5.0) g/dL Urine Color (YELLOW) Urine Appearance (CLEAR) Urine pH (5-6) Ur Specific [place] (1.005-1.025) Urine Protein (Negative) Urine Ketones (NEGATIVE) Urine Blood (0-5) [place]/ul Urine Nitrite (NEGATIVE) Urine Bilirubin (NEGATIVE) Urine Urobilinogen (0-1) mg/dL Ur Leukocyte Esterase (NEGATIVE) Urine WBC (Auto) (0-5) /HPF Urine RBC (Auto) (0-2) /HPF U Epithel Cells (Auto) (FEW) /HPF Urine Bacteria (Auto) (NEGATIVE) /HPF Urine Mucus (Auto) (NEGATIVE) /HPF Urine Culture Reflexed (NO) Urine Glucose (NEGATIVE) mg/dL Urine HCG, Qual NEGATIVE (Negative) 12/09/21 12/09/21 12/09/21 Range/Units 12:00 12:00 12:00 WBC 14.4 H (4.0-10.5) K/mm3 RBC 5.13 (4.1-5.4) M/mm3 Hgb 15.9 (12.0-16.0) gm/dl Hct 48.1 H (35-47) % MCV 93.8 (78-100) fl MCH 31.0 (26-32) pg MCHC 33.1 (32-36) g/dl RDW 12.1 (11.5-14.0) % Plt Count 218 (150-450) K/mm3 MPV 10.3 (7.5-11.0) fl Gran % 67.4 H (36.0-66.0) % Eos # (Auto) 0.27 (0-0.5) Absolute Lymphs (auto) 3.63 (1.0-4.6) Absolute Monos (auto) 0.77 (0.0-1.3) Lymphocytes % 25.2 (24.0-44.0) % Monocytes % 5.3 (0.0-12.0) % Eosinophils % 1.9 (0.00-5.0) % Basophils % 0.2 (0.0-0.4) % Absolute Granulocytes 9.73 H (1.4-6.9) Basophils # 0.03 (0-0.4) Sodium 138 (137-145) mmol/L Potassium 4.7 (3.5-5.1) mmol/L Chloride 105 (98-107) mmol/L Carbon Dioxide 24 (22-30) mmol/L Anion Gap 14.3 (5-15) MEQ/L BUN 9 (7-17) mg/dL Creatinine 0.50 L (0.52-1.04) mg/dL Estimated GFR > 60.0 ML/MIN Glucose 89 (74-106) mg/dL Lactic Acid (0.4-2.0) Calcium 10.0 (8.4-10.2) mg/dL Magnesium 2.1 (1.6-2.3) mg/dL Total Bilirubin 1.00 (0.2-1.3) mg/dL AST 31 (14-36) U/L ALT 21 (0-35) U/L Alkaline Phosphatase 93 (38-126) U/L Troponin I (0.000-0.034) ng/mL NT-Pro-B Natriuret Pep 107 (0-450) pg/mL Serum Total Protein 8.0 (6.3-8.2) g/dL Albumin 4.7 (3.5-5.0) g/dL Urine Color YELLOW (YELLOW) Urine Appearance SLIGHTLY CLOUDY (CLEAR) Urine pH 5.0 (5-6) Ur Specific [place] 1.020 (1.005-1.025) Urine Protein NEGATIVE (Negative) Urine Ketones NEGATIVE (NEGATIVE) Urine Blood NEGATIVE (0-5) [place]/ul Urine Nitrite NEGATIVE (NEGATIVE) Urine Bilirubin NEGATIVE (NEGATIVE) Urine Urobilinogen NEGATIVE (0-1) mg/dL Ur Leukocyte Esterase NEGATIVE (NEGATIVE) Urine WBC (Auto) 0-2 (0-5) /HPF Urine RBC (Auto) NONE (0-2) /HPF U Epithel Cells (Auto) RARE (FEW) /HPF Urine Bacteria (Auto) NONE (NEGATIVE) /HPF Urine Mucus (Auto) SLIGHT (NEGATIVE) /HPF Urine Culture Reflexed NO (NO) Urine Glucose NEGATIVE (NEGATIVE) mg/dL Urine HCG, Qual (Negative) - Progress Progress: improved Air Movement: good Progress Note: 12/09/21 14:26 41-year-old with history of asthma is evaluated for worsening shortness of breath with some chest pains on deep breathing with recent intubation for laparoscopy. She is given steroids, breathing treatment and fluids, on reevaluation feeling much better. She has a white count of 14, lactate of 2.1, grossly unremarkable chemistries. I have obtained CTA chest which is negative for pulmonary embolism, pneumonia, has bilateral atelectasis which is probably from recent intubation. She is advised to use albuterol, short course of steroids and outpatient follow-up. Outpatient Covid tests is obtained. Blood Culture(s) Obtained: Yes Counseled pt/family regarding: lab results, diagnosis, need for follow-up, rad results - Departure Departure Disposition: Home Clinical Impression: Acute viral syndrome, Postoperative atelectasis Condition: Stable Critical Care Time: No Referrals: HOMERO GUTIÉRREZ MD [Primary Care Provider] - Follow up/PCP as directed Instructions: Asthma, Adult (DC) Additional Instructions: Use inhaler as recommended. Do deep breathing exercises. Follow-up with primary care for reevaluation. Follow contact/droplet precautions until your COVID-19 test results are back. Take Tylenol as needed for aches and pains. Prescriptions: Dexamethasone [Decadron] 6 mg PO DAILY #5 tablet
[2021-12-09 12:24] LABS: Absolute Neutrophil Ct (ANC) 9.73 (1.4-6.9); Basophil (Absolute #) 0.03 (0-0.4); Eosinophil % 1.9 % (0.00-5.0); Eosinophil (Absolute #) 0.27 (0-0.5); Hematocrit 48.1 % (35-47); Hemoglobin 15.9 gm/dl (12.0-16.0); Lymphocyte (Absolute #) 3.63 (1.0-4.6); Lymphocytes % 25.2 % (24.0-44.0); Mean Cell Volume 93.8 fl (78-100); Mean Corpuscular Hgb Concent. 33.1 g/dl (32-36); Mean Platelet Volume 10.3 fl (7.5-11.0); Monocyte (Absolute #) 0.77 (0.0-1.3); Monocytes % 5.3 % (0.0-12.0); Neutrophil % 67.4 % (36.0-66.0); Platelet Count 218 K/mm3 (150-450); Red Blood Count 5.13 M/mm3 (4.1-5.4); Red Cell Distribution Width 12.1 % (11.5-14.0); White Blood Count 14.4 K/mm3 (4.0-10.5)
[2021-12-09 12:28] LABS: Appearance SLIGHTLY CLOUDY (CLEAR); Bilirubin NEGATIVE (NEGATIVE); Blood NEGATIVE Ery/ul (0-5); Epithelial Cells RARE /HPF (FEW); Glucose NEGATIVE (NEGATIVE); Ketones NEGATIVE (NEGATIVE); Leukocyte Esterase NEGATIVE (NEGATIVE); Mucus SLIGHT /HPF (NEGATIVE); Nitrite NEGATIVE (NEGATIVE); Protein,Urine Dip NEGATIVE (Negative); Urobilinogen NEGATIVE mg/dL (0-1); WBC 0-2 /HPF (0-5)
[2021-12-09 12:43] LABS: ALBUMIN 4.7 g/dL (3.5-5.0); ALKALINE PHOSPHATASE 93 U/L (38-126); ANION GAP 14.3 MEQ/L (5-15); BLOOD UREA NITROGEN 9 mg/dL (7-17); CHLORIDE 105 mmol/L (98-107); Carbon Dioxide 24 mmol/L (22-30); EST GLOMERULAR FILTRATION RATE > 60.0 ML/MIN; Glucose 89 mg/dL (74-106); MAGNESIUM 2.1 mg/dL (1.6-2.3); NT PRO BNP 107 pg/mL (0-450); Potassium 4.7 mmol/L (3.5-5.1); SGOT/AST 31 U/L (14-36); SGPT/ALT 21 U/L (0-35); SODIUM 138 mmol/L (137-145)
[2021-12-09] MEDS ORDERED: Sodium Chloride 0.9% 1000 ML 1,000 ML ONE (12:50)
[2021-12-09] MEDS ORDERED: Sodium Chloride 0.9% 1000 ML 1,000 ML IV STA (12:51)
[2021-12-09] MEDS ORDERED: VENTOLIN COMMON CANISTER IH ONE (13:23)
[2021-12-09 14:29] VITALS: BP 108/81; PULSE 88
[2021-12-09 14:30] VITALS: O2SAT 95
--- NOTE | 2021-12-09 18:06 | XRAY ---
Indication: Short of breath. Status post "exploratory surgery." Multiple contiguous axial images obtained through the chest using 90 cc Isovue-370 contrast and PE protocol. Comparison: None Moderate diffuse respiration artifact limits evaluation for pulmonary embolus. No obvious pulmonary embolus. Heart not enlarged. Aorta is normal in course and caliber. No pathologic mediastinal/hilar lymphadenopathy. Lungs demonstrate lingula and bibasilar subsegmental atelectasis/scarring. No suspicious pulmonary mass, infiltrate, effusion, or pneumothorax. Bony thorax intact. Limited upper abdomen demonstrates mild fatty liver. Impression: 1. Pulmonary embolus evaluation limited by respiration artifact. No obvious pulmonary embolus. 2. Bilateral subsegmental atelectasis/scarring. 3. Fatty liver. Comment: Preliminary interpretation made by [facility]. No critical discrepancy.
== END 2021-12-09 14:44 | disposition home or self-care (01) ==
LOC: ED 11:36
DX: B34.9 Viral infection, unspecified (principal); J95.89 Other postprocedural complications and disorders of respiratory system, not elsewhere classified; J98.11 Atelectasis; R09.81 Nasal congestion; J02.9 Acute pharyngitis, unspecified; R05.9 Cough, unspecified; R06.02 Shortness of breath; R51.9 Headache, unspecified; M79.10 Myalgia, unspecified site; Z79.52 Long term (current) use of systemic steroids; Z79.899 Other long term (current) drug therapy
CPT/HCPCS: 36000; 36415; 71260; 80053; 81001; 83605; 83735; 83880; 84484; 84703; 85025; 87040; 93005; 93041; 94640; 96360; 96374; 99284; U0003; J2930

== ENCOUNTER 2022-03-23 09:13 | Emergency (ER) | payer BC ==
[2022-03-23] MEDS ORDERED: Keppra 500 MG/5 ML*** 500 MG in D5w 100ML Mini Bag 100 ML 100 ML IV ONE (09:30)
[2022-03-23 09:46] LABS: Absolute Neutrophil Ct (ANC) 4.76 (1.4-6.9); Basophil (Absolute #) 0.03 (0-0.4); Eosinophil % 2.4 % (0.00-5.0); Eosinophil (Absolute #) 0.19 (0-0.5); Hemoglobin 14.8 gm/dl (12.0-16.0); Lymphocyte (Absolute #) 2.41 (1.0-4.6); Lymphocytes % 30.1 % (24.0-44.0); Mean Cell Volume 96.9 fl (78-100); Mean Corpuscular Hemoglobin 32.6 pg (26-32); Mean Corpuscular Hgb Concent. 33.6 g/dl (32-36); Mean Platelet Volume 10.2 fl (7.5-11.0); Monocyte (Absolute #) 0.62 (0.0-1.3); Monocytes % 7.7 % (0.0-12.0); Neutrophil % 59.4 % (36.0-66.0); Platelet Count 186 K/mm3 (150-450); Red Blood Count 4.54 M/mm3 (4.1-5.4); Red Cell Distribution Width 12.7 % (11.5-14.0)
[2022-03-23 10:00] LABS: ALBUMIN 4.8 g/dL (3.5-5.0); ALKALINE PHOSPHATASE 56 U/L (38-126); BLOOD UREA NITROGEN 10 mg/dL (7-17); CHLORIDE 106 mmol/L (98-107); Calcium 9.1 mg/dL (8.4-10.2); Carbon Dioxide 24 mmol/L (22-30); Creatinine 1 0.42 mg/dL (0.52-1.04); EST GLOMERULAR FILTRATION RATE > 60.0 ML/MIN; Glucose 98 mg/dL (74-106); SGOT/AST 49 U/L (14-36); SGPT/ALT 22 U/L (0-35); SODIUM 140 mmol/L (137-145); Total Protein 8.5 g/dL (6.3-8.2)
[2022-03-23 10:02] LABS: Potassium 5.8 mmol/L (3.5-5.1)
--- NOTE | 2022-03-23 10:17 | ERPHSYRPT ---
- History of Present Illness Source: other () Exam Limitations: clinical condition Patient Subjective Stated Complaint: PT HERE FOR 3 SEIZURES THIS MORNING, SHE IS ALERT, BUT SLOW TO RESPOND, CO PAIN TO RIGHT LOWER ARM, AND FOREHEAD , SHE MISSED HER SEIZRE MEDS ON SATURDAY Triage Nursing Assessment: PT ALERT, SLOW TO RESPOND, RESP EASY, SKIN W/D/P, SLIGHT SWELLING TO LOWER RIGHT ARM, Physician History: 41 yo wf w h/o seizure disorder presents post-ictal after having 3 seizures since 3AM. Pt is on Keppra but missed dose 4 days ago. denies focal weakness/fever/dysuria/hematuria/N/V/D. admitted for pneumonia earlier this week. His CV19 test negative. Timing/Duration: other (3AM) Severity: moderate Deficits: no difficulties Baseline/Normal Cognition: alert oriented x 3 Current Cognition: poor alertness (Good airway) Baseline Gait: walks w/o assistance Associated Symptoms: confusion, loss of consciousness, seizures, No fatigue, No fever, No chills, No nausea, No vomiting, No weakness, No insomnia, No muscle spasms, No numbness/tingling in legs/feet, No paresthesia, No ringing in ears, No slurred speech, No trouble walking, No vision changes, No chest pain, No headache Allergies/Adverse Reactions: No Known Drug Allergies Allergy (Verified 03/23/22 09:24) Home Medications: Levetiracetam [Keppra 500 mg ] 500 mg PO BID 12/04/21 [History] Montelukast Sodium 10 mg [Singulair 10 MG] 10 mg PO DAILY 12/04/21 [History] Hx Influenza Vaccination/Date Given: No Hx Pneumococcal Vaccination/Date Given: No Immunizations Up to Date: Yes Travel Risk - International Travel Have you traveled outside of the country in past 3 weeks: No - Coronavirus Screening Are you exhibiting any of the following symptoms?: No Close contact with a COVID-19 positive Pt in past 14-21 Days: No - Vaccine Status Have you recieved a Covid-19 vaccination: No - Review of Systems Constitutional: No Symptoms Eyes: No Symptoms Ears, Nose, & Throat: No Symptoms Respiratory: No Symptoms Cardiac: No Symptoms Abdominal/Gastrointestinal: No Symptoms Genitourinary Symptoms: No Symptoms Musculoskeletal: No Symptoms Skin: No Symptoms Neurological: No Symptoms, Seizure Psychological: No Symptoms Endocrine: No Symptoms Hematologic/Lymphatic: No Symptoms Immunological/Allergic: No Symptoms - Past Medical History Pertinent Past Medical History: Yes Neurological History: Seizures ENT History: No Pertinent History Cardiac History: Congenital Heart Disease, Other Respiratory History: Asthma, Pneumonia Endocrine Medical History: No Pertinent History Musculoskeletal History: Arthritis GI Medical History: No Pertinent History History: No Pertinent History Psycho-Social History: No Pertinent History Female Reproductive Disorders: Endometriosis - Past Surgical History Past Surgical History: Yes Neuro Surgical History: No Pertinent History Cardiac: Vascular Surgery Respiratory: No Pertinent History Gastrointestinal: No Pertinent History Genitourinary: No Pertinent History Musculoskeletal: No Pertinent History Female Surgical History: No Pertinent History Other Surgical History: wrist surgery - Social History Smoking Status: Never smoker Exposure to second hand smoke: No Drug Use: none Patient Lives Alone: No Significant Family History: no pertinent family hx - Female History Hx Last Menstrual Period: 2 WEEKS AGO Hx Now: No - Nursing Vital Signs Nursing Vital Signs: Initial Vital Signs Pulse Rate 60 03/23/22 11:17 Respiratory Rate 19 03/23/22 11:17 Blood Pressure 106/69 03/23/22 11:17 O2 Sat by Pulse Oximetry 99 03/23/22 11:17 Pain Scale Pain Intensity 0 - David Coma Scale Best Eye Response (David): (3) open to voice Best Verbal Response (David): (4) confused conversation Best Motor Response (David): (6) obeys commands David Total: 13 - Physical Exam General Appearance: no apparent distress Eye Exam: bilateral eye: normal inspection, PERRL, EOMI Ears, Nose, Throat Exam: normal ENT inspection, TMs normal, pharynx normal, moist mucous membranes Neck Exam: normal inspection, non-tender, supple, full range of motion, No meningismus, No mass, No Brudzinski, No Kernig's Respiratory: airway intact, crackles/rales (Rales B bases) Cardiovascular: regular rate/rhythm, normal heart sounds, normal peripheral pulses, capillary refill <2 sec, No murmur Gastrointestinal: soft, normal bowel sounds, No tenderness Back Exam: normal inspection, normal range of motion, No CVA tenderness, No vertebral tenderness Extremity Exam: normal inspection, normal range of motion Peripheral Pulses: carotid (R): 2+, carotid (L): 2+ Mental Status: oriented x 3, 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 Exam: normal hearing, normal speech, PERRL DTR: bicep (R): 2+, bicep (L): 2+ Skin Exam: normal color, warm, dry - Course Nursing assessment & vital signs reviewed: Yes - CT Exams Head CT Interpretation: Discussed w/radiologist (CT head neg per Rad) Chest CT Interpretation: Discussed w/radiologist (Bibasilar atelectasis) Ordered Tests: Active Orders 24 hr Category Date Time Status IV Insertion STAT Care 03/23/22 09:30 Completed CHEST WITHOUT CONTRAST [CT] Stat Exams 03/23/22 10:19 Completed HEAD WITHOUT CONTRAST [CT] Stat Exams 03/23/22 10:19 Completed Alcohol [ETHYL ALCOHOL] Stat Lab 03/23/22 09:25 Completed BMP Stat Lab 03/23/22 10:38 Completed CBC W DIFF Stat Lab 03/23/22 09:25 Completed CMP Stat Lab 03/23/22 09:25 Completed HCG QUALITATIVE,SERUM Stat Lab 03/23/22 09:25 Completed TROPONIN Q3H Lab 03/23/22 10:55 Completed Urine Triage Profile Stat Lab 03/23/22 12:31 Completed Medication Summary Discontinued Medications Generic Name Dose Route Start Last Admin Trade Name Freq PRN Reason Stop Dose Admin Levetiracetam 500 mg/ Dextrose 105 mls @ 400 mls/hr 03/23/22 09:30 03/23/22 09:48 IV 03/23/22 09:45 400 mls/hr STAT ONE Administration Sodium Chloride 1,000 mls @ 999 mls/hr 03/23/22 13:22 03/23/22 13:29 Sodium Chloride 0.9% 1000 Ml IV 03/23/22 14:22 999 mls/hr .Q1H1M STA Administration Sodium Chloride Confirm 03/23/22 13:28 Sodium Chloride 0.9% 1000 Ml Administered 03/23/22 13:29 Dose 1,000 mls @ ud .ROUTE .STK-MED ONE Lab/Rad Data: Laboratory Result Diagrams 03/23/22 09:25 03/23/22 10:38 Laboratory Results 03/23/22 03/23/22 03/23/22 Range/Units Unknown 12:31 12:31 WBC (4.0-10.5) K/mm3 RBC (4.1-5.4) M/mm3 Hgb (12.0-16.0) gm/dl Hct (35-47) % MCV (78-100) fl MCH (26-32) pg MCHC (32-36) g/dl RDW (11.5-14.0) % Plt Count (150-450) K/mm3 MPV (7.5-11.0) fl Gran % (36.0-66.0) % Eos # (Auto) (0-0.5) Absolute Lymphs (auto) (1.0-4.6) Absolute Monos (auto) (0.0-1.3) Lymphocytes % (24.0-44.0) % Monocytes % (0.0-12.0) % Eosinophils % (0.00-5.0) % Basophils % (0.0-0.4) % Absolute Granulocytes (1.4-6.9) Basophils # (0-0.4) Sodium (137-145) mmol/L Potassium (3.5-5.1) mmol/L Chloride (98-107) mmol/L Carbon Dioxide (22-30) mmol/L Anion Gap (5-15) MEQ/L BUN (7-17) mg/dL Creatinine (0.52-1.04) mg/dL Estimated GFR ML/MIN Glucose (74-106) mg/dL Calcium (8.4-10.2) mg/dL Total Bilirubin (0.2-1.3) mg/dL AST (14-36) U/L ALT (0-35) U/L Alkaline Phosphatase (38-126) U/L Troponin I (0.000-0.034) ng/mL Serum Total Protein (6.3-8.2) g/dL Albumin (3.5-5.0) g/dL Serum , Qual (Negative) Urinalys Dipstick Clnc MAIN LAB Urine Color YELLOW (YELLOW) Urine Appearance CLEAR (CLEAR) Urine pH 5.5 (5-6) Ur Specific [place] >=1.030 (1.005-1.025) POC Urine Protein Conf NEGATIVE (Negative) Urine Ketones NEGATIVE (NEGATIVE) Urine Nitrite NEGATIVE (NEGATIVE) Urine Bilirubin NEGATIVE (NEGATIVE) Urine Urobilinogen 0.2 (0-1) mg/dL Urine Leukocytes NEGATIVE (NEGATIVE) Urine WBC (Auto) NONE (0-5) /HPF U Hyaline Cast (Auto) 0-2 (0-2) /LPF U Epithel Cells (Auto) RARE (FEW) /HPF Urine RBC NEGATIVE (0-5) [place]/ul Urine Mucus (Auto) SLIGHT (NEGATIVE) /HPF Ur Culture Indicated? NO Urine Glucose NEGATIVE (NEGATIVE) mg/dL Urine Opiates Level NEGATIVE (NEGATIVE) Ur Methadone NEGATIVE (NEGATIVE) Urine Barbiturates NEGATIVE (NEGATIVE) Ur Phencyclidine (PCP) NEGATIVE (NEGATIVE) Urine Amphetamine NEGATIVE (NEGATIVE) U Benzodiazepine Level NEGATIVE (NEGATIVE) Urine Cocaine NEGATIVE (NEGATIVE) Urine Marijuana (THC) NEGATIVE (NEGATIVE) Ethyl Alcohol (0-10) mg/dL Influenza Type A Ag NEGATIVE (NEGATIVE) Influenza Type B Ag NEGATIVE (NEGATIVE) RSV (PCR) NEGATIVE (Negative) SARS-CoV-2 (PCR) NEGATIVE (NEGATIVE) 03/23/22 03/23/22 03/23/22 Range/Units 10:55 10:38 09:25 WBC (4.0-10.5) K/mm3 RBC (4.1-5.4) M/mm3 Hgb (12.0-16.0) gm/dl Hct (35-47) % MCV (78-100) fl MCH (26-32) pg MCHC (32-36) g/dl RDW (11.5-14.0) % Plt Count (150-450) K/mm3 MPV (7.5-11.0) fl Gran % (36.0-66.0) % Eos # (Auto) (0-0.5) Absolute Lymphs (auto) (1.0-4.6) Absolute Monos (auto) (0.0-1.3) Lymphocytes % (24.0-44.0) % Monocytes % (0.0-12.0) % Eosinophils % (0.00-5.0) % Basophils % (0.0-0.4) % Absolute Granulocytes (1.4-6.9) Basophils # (0-0.4) Sodium 140 (137-145) mmol/L Potassium 3.8 D (3.5-5.1) mmol/L Chloride 106 (98-107) mmol/L Carbon Dioxide 23 (22-30) mmol/L Anion Gap 14.8 (5-15) MEQ/L BUN 10 (7-17) mg/dL Creatinine 0.42 L (0.52-1.04) mg/dL Estimated GFR > 60.0 ML/MIN Glucose 97 (74-106) mg/dL Calcium 8.9 (8.4-10.2) mg/dL Total Bilirubin (0.2-1.3) mg/dL AST (14-36) U/L ALT (0-35) U/L Alkaline Phosphatase (38-126) U/L Troponin I < 0.012 (0.000-0.034) ng/mL Serum Total Protein (6.3-8.2) g/dL Albumin (3.5-5.0) g/dL Serum , Qual (Negative) Urinalys Dipstick Clnc Urine Color (YELLOW) Urine Appearance (CLEAR) Urine pH (5-6) Ur Specific [place] (1.005-1.025) POC Urine Protein Conf (Negative) Urine Ketones (NEGATIVE) Urine Nitrite (NEGATIVE) Urine Bilirubin (NEGATIVE) Urine Urobilinogen (0-1) mg/dL Urine Leukocytes (NEGATIVE) Urine WBC (Auto) (0-5) /HPF U Hyaline Cast (Auto) (0-2) /LPF U Epithel Cells (Auto) (FEW) /HPF Urine RBC (0-5) [place]/ul Urine Mucus (Auto) (NEGATIVE) /HPF Ur Culture Indicated? Urine Glucose (NEGATIVE) mg/dL Urine Opiates Level (NEGATIVE) Ur Methadone (NEGATIVE) Urine Barbiturates (NEGATIVE) Ur Phencyclidine (PCP) (NEGATIVE) Urine Amphetamine (NEGATIVE) U Benzodiazepine Level (NEGATIVE) Urine Cocaine (NEGATIVE) Urine Marijuana (THC) (NEGATIVE) Ethyl Alcohol < 10 (0-10) mg/dL Influenza Type A Ag (NEGATIVE) Influenza Type B Ag (NEGATIVE) RSV (PCR) (Negative) SARS-CoV-2 (PCR) (NEGATIVE) 03/23/22 03/23/22 03/23/22 Range/Units 09:25 09:25 09:25 WBC 8.0 (4.0-10.5) K/mm3 RBC 4.54 (4.1-5.4) M/mm3 Hgb 14.8 (12.0-16.0) gm/dl Hct 44.0 (35-47) % MCV 96.9 (78-100) fl MCH 32.6 H (26-32) pg MCHC 33.6 (32-36) g/dl RDW 12.7 (11.5-14.0) % Plt Count 186 (150-450) K/mm3 MPV 10.2 (7.5-11.0) fl Gran % 59.4 (36.0-66.0) % Eos # (Auto) 0.19 (0-0.5) Absolute Lymphs (auto) 2.41 (1.0-4.6) Absolute Monos (auto) 0.62 (0.0-1.3) Lymphocytes % 30.1 (24.0-44.0) % Monocytes % 7.7 (0.0-12.0) % Eosinophils % 2.4 (0.00-5.0) % Basophils % 0.4 (0.0-0.4) % Absolute Granulocytes 4.76 (1.4-6.9) Basophils # 0.03 (0-0.4) Sodium 140 (137-145) mmol/L Potassium 5.8 H (3.5-5.1) mmol/L Chloride 106 (98-107) mmol/L Carbon Dioxide 24 (22-30) mmol/L Anion Gap 16.0 H (5-15) MEQ/L BUN 10 (7-17) mg/dL Creatinine 0.42 L (0.52-1.04) mg/dL Estimated GFR > 60.0 ML/MIN Glucose 98 (74-106) mg/dL Calcium 9.1 (8.4-10.2) mg/dL Total Bilirubin 1.90 H (0.2-1.3) mg/dL AST 49 H (14-36) U/L ALT 22 (0-35) U/L Alkaline Phosphatase 56 (38-126) U/L Troponin I (0.000-0.034) ng/mL Serum Total Protein 8.5 H (6.3-8.2) g/dL Albumin 4.8 (3.5-5.0) g/dL Serum , Qual NEGATIVE (Negative) Urinalys Dipstick Clnc Urine Color (YELLOW) Urine Appearance (CLEAR) Urine pH (5-6) Ur Specific [place] (1.005-1.025) POC Urine Protein Conf (Negative) Urine Ketones (NEGATIVE) Urine Nitrite (NEGATIVE) Urine Bilirubin (NEGATIVE) Urine Urobilinogen (0-1) mg/dL Urine Leukocytes (NEGATIVE) Urine WBC (Auto) (0-5) /HPF U Hyaline Cast (Auto) (0-2) /LPF U Epithel Cells (Auto) (FEW) /HPF Urine RBC (0-5) [place]/ul Urine Mucus (Auto) (NEGATIVE) /HPF Ur Culture Indicated? Urine Glucose (NEGATIVE) mg/dL Urine Opiates Level (NEGATIVE) Ur Methadone (NEGATIVE) Urine Barbiturates (NEGATIVE) Ur Phencyclidine (PCP) (NEGATIVE) Urine Amphetamine (NEGATIVE) U Benzodiazepine Level (NEGATIVE) Urine Cocaine (NEGATIVE) Urine Marijuana (THC) (NEGATIVE) Ethyl Alcohol (0-10) mg/dL Influenza Type A Ag (NEGATIVE) Influenza Type B Ag (NEGATIVE) RSV (PCR) (Negative) SARS-CoV-2 (PCR) (NEGATIVE) - Progress Progress: improved Progress Note: 03/23/22 13:25 500mg IV Keppra 1L NS bolus 03/23/22 13:29 No seizure activity observed while in ER 03/23/22 19:20 Pt became more awake and alert during her stay Counseled pt/family regarding: lab results, diagnosis, need for follow-up, grisel timmons - Departure Departure Disposition: Home Clinical Impression: Seizure Condition: Stable Critical Care Time: No Referrals: HOMERO GUTIÉRREZ MD [Primary Care Provider] - Follow up/PCP as directed Instructions: Seizures, Adult (DC) Additional Instructions: Follow up with Neurologist or family MD Continue with Keppra No driving until cleared by Neurologist or family MD Forms: Work/School Release Form
[2022-03-23 10:56] LABS: INFLUENZA A NEGATIVE (NEGATIVE); INFLUENZA B NEGATIVE (NEGATIVE); RESPIRATORY SYNCTIAL VIRUS NEGATIVE (Negative); SARS-CoV-2 Xpert Express NEGATIVE (NEGATIVE)
[2022-03-23 11:10] LABS: ANION GAP 14.8 MEQ/L (5-15); BLOOD UREA NITROGEN 10 mg/dL (7-17); CHLORIDE 106 mmol/L (98-107); Calcium 8.9 mg/dL (8.4-10.2); Carbon Dioxide 23 mmol/L (22-30); Creatinine 1 0.42 mg/dL (0.52-1.04); EST GLOMERULAR FILTRATION RATE > 60.0 ML/MIN; Glucose 97 mg/dL (74-106); SODIUM 140 mmol/L (137-145)
[2022-03-23 11:12] LABS: Potassium 3.8 mmol/L (3.5-5.1)
--- NOTE | 2022-03-23 11:24 | XRAY ---
Indication: Seizure. Left forehead injury. Multiple contiguous axial images obtained through the head without contrast. Comparison: December 22, 2021 Normal appearing brain parenchyma, ventricles, and bony calvarium for patient's age. Paranasal sinuses and mastoid air cells are clear. Impression: Continued normal CT head without contrast exam.
--- NOTE | 2022-03-23 11:26 | XRAY ---
Indication: Seizure. Chest pain following fall. Multiple contiguous axial images obtained through the chest without contrast. Comparison: May 22, 2022. Lungs again demonstrate mild bibasilar subsegmental atelectasis/scarring. No suspicious pulmonary mass, infiltrate, effusion, or pneumothorax. Heart not enlarged. Aorta is normal in course and caliber. Stable chunky calcified node in the AP window. No pathologic mediastinal lymphadenopathy. Bony thorax intact. Limited upper abdomen unremarkable. Impression: Again bibasilar subsegmental atelectasis/scarring and calcified mediastinal node. Remaining CT chest without contrast exam is again negative.
[2022-03-23 12:49] LABS: Epithelial Cells RARE /HPF (FEW); Hyaline Casts 0-2 /LPF (0-2); Mucus SLIGHT /HPF (NEGATIVE)
[2022-03-23 12:50] LABS: Appearance CLEAR (CLEAR); Bilirubin NEGATIVE (NEGATIVE); Glucose NEGATIVE (NEGATIVE); Ketones NEGATIVE (NEGATIVE); RBC NEGATIVE Ery/ul (0-5); Specific Gravity >=1.030 (1.005-1.025)
[2022-03-23 12:51] LABS: Nitrite NEGATIVE (NEGATIVE); Ph 5.5 (5-6); Protein,Urine Dip NEGATIVE (Negative); Urine Cultured Indicated? NO; Urobilinogen 0.2 mg/dL (0-1)
[2022-03-23 13:03] LABS: Amphetamine,Urine NEGATIVE (NEGATIVE); Barbiturate,Urine NEGATIVE (NEGATIVE); Benzodiazepine,Urine NEGATIVE (NEGATIVE); Cocaine,Urine NEGATIVE (NEGATIVE); Methadone,Urine NEGATIVE (NEGATIVE); Opiate,Urine NEGATIVE (NEGATIVE); PCP,Urine NEGATIVE (NEGATIVE); THC,Urine NEGATIVE (NEGATIVE)
[2022-03-23 13:08] LABS: Dipstick done @ ? MAIN LAB
[2022-03-23] MEDS ORDERED: Sodium Chloride 0.9% 1000 ML 1,000 ML IV STA (13:22)
[2022-03-23] MEDS ORDERED: Sodium Chloride 0.9% 1000 ML 1,000 ML ONE (13:28)
[2022-03-23 14:33] VITALS: BP 103/63; PULSE 71; O2SAT 98
== END 2022-03-23 14:39 | disposition home or self-care (01) ==
LOC: ED 09:13
DX: R56.9 Unspecified convulsions (principal); F05 Delirium due to known physiological condition; Z79.899 Other long term (current) drug therapy
CPT/HCPCS: 0241U; 36000; 36415; 70450; 71250; 80048; 80053; 80307; 81015; 81025; 84484; 85025; 96360; 99284; 96374; J1953; G0480

== ENCOUNTER 2022-03-28 06:37 | Emergency (ER) | payer BC ==
[2022-03-28] MEDS ORDERED: Sodium Chloride 0.9% 1000 ML 1,000 ML IV STA (07:19)
[2022-03-28] MEDS ORDERED: Zofran 4 MG/2 ML VIAL IV ONE (07:19)
[2022-03-28] MEDS ORDERED: Keppra 500 MG/5 ML*** 1,000 MG in D5w 100ML Mini Bag 100 ML 100 ML IV ONE (07:19)
--- NOTE | 2022-03-28 07:36 | ERPHSYRPT ---
- History of Present Illness Time Seen by Provider: 03/28/22 07:15 Source: patient, family, EMS Exam Limitations: clinical condition Patient Subjective Stated Complaint: pt had seizure at work Triage Nursing Assessment: Pt arrived via ambulance. 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 Approx 1 minute after fall, pt began seizing, lasting about 1 minuter per spouse. Pt is post ictal at this time, briefly opened eyes and nodded to a couple questions, but is mostly lethargic. No knots or bruises or open areas noted to pt's head. Physician History: 41-year-old with history of seizures on Keppra presented in the ER after she had a seizure-like activity prior to arrival at work. As per report patient did not feel well and fell backward and started to have a seizure without loss of bowel or bladder control, no tongue bite. It lasted for almost 1 minute and improved. Patient is currently sleepy/postictal and answering few questions. Moving all 4 extremities. Patient recently missed her dose of Keppra and had seizure 1 on Saturday/4 days ago and 1 today. No alcohol or drug use. No fever or chills reported. She is complaining of headache especially in the back of her head where she hit the floor. Timing/Duration: today, resolved prior to arrival, sudden Severity: moderate Character of Deficits: none Deficits: no difficulties Baseline/Normal Cognition: alert oriented x 3 Current Cognition: alert oriented x 3 Baseline Gait: walks w/o assistance Associated Symptoms: seizures Allergies/Adverse Reactions: No Known Drug Allergies Allergy (Verified 03/28/22 06:55) Home Medications: Levetiracetam [Keppra 500 mg ] 500 mg PO BID 12/04/21 [History] Montelukast Sodium 10 mg [Singulair 10 MG] 10 mg PO DAILY 12/04/21 [History] Mv-Mn/Iron/Folic Acid/Herb 190 [Vitamin D3 Complete Caplet] 1 tab PO 2XW 03/28/22 [History] Hx Tetanus, Diphtheria Vaccination/Date Given: Yes Hx Influenza Vaccination/Date Given: No Hx Pneumococcal Vaccination/Date Given: No Immunizations Up to Date: Yes Travel Risk - International Travel Have you traveled outside of the country in past 3 weeks: No - Coronavirus Screening Close contact with a COVID-19 positive Pt in past 14-21 Days: No - Vaccine Status Have you recieved a Covid-19 vaccination: No - Review of Systems All Other Systems: Unable due to condition - Past Medical History Pertinent Past Medical History: Yes Neurological History: Seizures ENT History: No Pertinent History Cardiac History: Congenital Heart Disease, Other Respiratory History: Asthma, Pneumonia Endocrine Medical History: No Pertinent History Musculoskeletal History: Arthritis GI Medical History: No Pertinent History History: No Pertinent History Psycho-Social History: No Pertinent History Female Reproductive Disorders: Endometriosis - Past Surgical History Past Surgical History: Yes Neuro Surgical History: No Pertinent History Cardiac: Vascular Surgery Respiratory: No Pertinent History Gastrointestinal: No Pertinent History Genitourinary: No Pertinent History Musculoskeletal: Orthopedic Surgery Female Surgical History: No Pertinent History Other Surgical History: wrist surgery (plate and screws in rt wrist) 2016. 5 coils in heart between 2 valves in 2004 - Social History Smoking Status: Never smoker Exposure to second hand smoke: No Drug Use: none Patient Lives Alone: No Significant Family History: no pertinent family hx - Female History Hx Now: (unknown) - Nursing Vital Signs Nursing Vital Signs: Initial Vital Signs Temperature 97.9 F 03/28/22 06:39 Pulse Rate 70 03/28/22 06:39 Respiratory Rate 16 03/28/22 06:39 Blood Pressure 120/75 03/28/22 06:39 O2 Sat by Pulse Oximetry 98 03/28/22 06:39 Pain Scale Pain Intensity 2 - David Coma Scale Best Eye Response (Oley): (3) open to voice Best Verbal Response (David): (5) oriented Best Motor Response (Oley): (6) obeys commands Oley Total: 14 - Physical Exam General Appearance: no apparent distress Eye Exam: bilateral eye: normal inspection, PERRL Ears, Nose, Throat Exam: normal ENT inspection, TMs normal, pharynx normal, m oist mucous membranes Neck Exam: normal inspection, non-tender, supple, No limited range of motion, No midline tenderness Respiratory: normal breath sounds, lungs clear Cardiovascular: regular rate/rhythm, normal heart sounds Gastrointestinal: soft, normal bowel sounds, No tenderness Back Exam: normal inspection, vertebral tenderness (Lumbar), muscle spasm, No CVA tenderness Extremity Exam: normal inspection, normal range of motion, pelvis stable Mental Status: alert, oriented x 3, other (Patient is sleepy/postictal and full neuro exam cannot be done. 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, PERRL Motor/Sensory: no motor deficit, negative Babinski's sign DTR: bicep (R): 2+, bicep (L): 2+, knee (R): 2+, knee (L): 2+ Skin Exam: normal color SpO2 Interpretation: normal SpO2: 98 O2 Delivery: Room Air - Course EKG Interpreted by Me: RATE ([id number]), Sinus Rhythm, NORMAL AXIS, NORMAL INTERVALS, NORMAL QRS Ordered Tests: Active Orders 24 hr Category Date Time Status Pipe Organ Builder STAT Care 03/28/22 07:20 Completed EKG-ER Only STAT Care 03/28/22 07:19 Completed IV Insertion STAT Care 03/28/22 07:19 Completed CERVICAL SPINE WO CONTRAST [CT] Stat Exams 03/28/22 07:19 Completed CHEST 1 VIEW (PORTABLE) Stat Exams 03/28/22 07:19 Completed HEAD WITHOUT CONTRAST [CT] Stat Exams 03/28/22 07:20 Completed LUMBAR SPINE W/O [CT] Stat Exams 03/28/22 07:30 Completed CBC W DIFF Stat Lab 03/28/22 06:50 Completed CMP Stat Lab 03/28/22 06:50 Completed HCG,QUALITATIVE URINE Stat Lab 03/28/22 09:20 Completed Lactic Acid Stat Lab 03/28/22 07:45 Completed Manual Differential NC Stat Lab 03/28/22 06:50 Completed UA W/RFX CULTURE Stat Lab 03/28/22 09:20 Completed Urine Triage Profile Stat Lab 03/28/22 09:11 Completed Medication Summary Discontinued Medications Generic Name Dose Route Start Last Admin Trade Name Freq PRN Reason Stop Dose Admin Acetaminophen 1,000 mg 03/28/22 09:15 03/28/22 09:19 Acetaminophen 500 Mg Tablet PO 03/28/22 09:16 1,000 mg STAT STA Administration Acetaminophen Confirm 03/28/22 09:17 Acetaminophen 500 Mg Tablet Administered 03/28/22 09:18 Dose 1,000 mg .ROUTE .STK-MED ONE Sodium Chloride 1,000 mls @ 999 mls/hr 03/28/22 07:19 03/28/22 08:46 Sodium Chloride 0.9% 1000 Ml IV 03/28/22 08:19 Infused .Q1H1M STA Infusion Levetiracetam 1,000 mg/ 110 mls @ 400 mls/hr 03/28/22 07:19 03/28/22 07:56 Dextrose IV 03/28/22 07:35 400 mls/hr STAT ONE Administration Sodium Chloride Confirm 03/28/22 07:41 Sodium Chloride 0.9% 1000 Ml Administered 03/28/22 07:42 Dose 1,000 mls @ ud .ROUTE .STK-MED ONE Ondansetron HCl 4 mg 03/28/22 07:19 03/28/22 07:43 Ondansetron Hcl 4 Mg/2 Ml Vial IV 03/28/22 07:20 4 mg STAT ONE Administration Ondansetron HCl Confirm 03/28/22 07:41 Ondansetron Hcl 4 Mg/2 Ml Vial Administered 03/28/22 07:42 Dose 4 mg .ROUTE .STK-MED ONE Lab/Rad Data: Laboratory Result Diagrams 03/28/22 06:50 03/28/22 06:50 Laboratory Results 03/28/22 03/28/22 03/28/22 Range/Units 09:20 09:20 09:11 WBC (4.0-10.5) K/mm3 RBC (4.1-5.4) M/mm3 Hgb (12.0-16.0) gm/dl Hct (35-47) % MCV (78-100) fl MCH (26-32) pg MCHC (32-36) g/dl RDW (11.5-14.0) % Plt Count (150-450) K/mm3 MPV (7.5-11.0) fl Segmented Neutrophils (36.0-66.0) % Lymphocytes (Manual) (24-44) % Monocytes (Manual) (0.0-12.0) % Eosinophils (Manual) (0.00-3.0) % Basophils (Manual) (0.0-1.0) % Platelet Estimate (NORMAL) RBC Morphology Sodium (137-145) mmol/L Potassium (3.5-5.1) mmol/L Chloride (98-107) mmol/L Carbon Dioxide (22-30) mmol/L Anion Gap (5-15) MEQ/L BUN (7-17) mg/dL Creatinine (0.52-1.04) mg/dL Estimated GFR ML/MIN Glucose (74-106) mg/dL Lactic Acid (0.4-2.0) Calcium (8.4-10.2) mg/dL Total Bilirubin (0.2-1.3) mg/dL AST (14-36) U/L ALT (0-35) U/L Alkaline Phosphatase (38-126) U/L Serum Total Protein (6.3-8.2) g/dL Albumin (3.5-5.0) g/dL Urinalys Dipstick Clnc MAIN LAB Urine Color YELLOW (YELLOW) Urine Appearance CLEAR (CLEAR) Urine pH 5.5 (5-6) Ur Specific [place] 1.010 (1.005-1.025) POC Urine Protein Conf NEGATIVE (Negative) Urine Ketones NEGATIVE (NEGATIVE) Urine Nitrite NEGATIVE (NEGATIVE) Urine Bilirubin NEGATIVE (NEGATIVE) Urine Urobilinogen 0.2 (0-1) mg/dL Urine Leukocytes NEGATIVE (NEGATIVE) Urine WBC (Auto) 0-2 (0-5) /HPF Urine RBC (Auto) 0-2 (0-2) /HPF U Epithel Cells (Auto) RARE (FEW) /HPF Urine Bacteria (Auto) FEW (NEGATIVE) /HPF Urine RBC NEGATIVE (0-5) [place]/ul Urine Mucus (Auto) SLIGHT (NEGATIVE) /HPF Ur Culture Indicated? NO Urine Glucose NEGATIVE (NEGATIVE) mg/dL Urine HCG, Qual NEGATIVE (Negative) Urine Opiates Level NEGATIVE (NEGATIVE) Ur Methadone NEGATIVE (NEGATIVE) Urine Barbiturates NEGATIVE (NEGATIVE) Ur Phencyclidine (PCP) NEGATIVE (NEGATIVE) Urine Amphetamine NEGATIVE (NEGATIVE) U Benzodiazepine Level NEGATIVE (NEGATIVE) Urine Cocaine NEGATIVE (NEGATIVE) Urine Marijuana (THC) NEGATIVE (NEGATIVE) 03/28/22 03/28/22 03/28/22 Range/Units 07:45 06:50 06:50 WBC 9.0 (4.0-10.5) K/mm3 RBC 4.93 (4.1-5.4) M/mm3 Hgb 16.1 H (12.0-16.0) gm/dl Hct 47.5 H (35-47) % MCV 96.3 (78-100) fl MCH 32.7 H (26-32) pg MCHC 33.9 (32-36) g/dl RDW 12.7 (11.5-14.0) % Plt Count 196 (150-450) K/mm3 MPV 10.4 (7.5-11.0) fl Segmented Neutrophils 68 H (36.0-66.0) % Lymphocytes (Manual) 28 (24-44) % Monocytes (Manual) 1 (0.0-12.0) % Eosinophils (Manual) 2 (0.00-3.0) % Basophils (Manual) 1 (0.0-1.0) % Platelet Estimate NORMAL (NORMAL) RBC Morphology NORMAL Sodium 142 (137-145) mmol/L Potassium 4.3 (3.5-5.1) mmol/L Chloride 105 (98-107) mmol/L Carbon Dioxide 23 (22-30) mmol/L Anion Gap 17.9 H (5-15) MEQ/L BUN 14 (7-17) mg/dL Creatinine 0.57 (0.52-1.04) mg/dL Estimated GFR > 60.0 ML/MIN Glucose 100 (74-106) mg/dL Lactic Acid 2.3 H (0.4-2.0) Calcium 10.2 (8.4-10.2) mg/dL Total Bilirubin 1.00 (0.2-1.3) mg/dL AST 31 (14-36) U/L ALT 31 (0-35) U/L Alkaline Phosphatase 93 (38-126) U/L Serum Total Protein 9.0 H (6.3-8.2) g/dL Albumin 5.2 H (3.5-5.0) g/dL Urinalys Dipstick Clnc Urine Color (YELLOW) Urine Appearance (CLEAR) Urine pH (5-6) Ur Specific [place] (1.005-1.025) POC Urine Protein Conf (Negative) Urine Ketones (NEGATIVE) Urine Nitrite (NEGATIVE) Urine Bilirubin (NEGATIVE) Urine Urobilinogen (0-1) mg/dL Urine Leukocytes (NEGATIVE) Urine WBC (Auto) (0-5) /HPF Urine RBC (Auto) (0-2) /HPF U Epithel Cells (Auto) (FEW) /HPF Urine Bacteria (Auto) (NEGATIVE) /HPF Urine RBC (0-5) [place]/ul Urine Mucus (Auto) (NEGATIVE) /HPF Ur Culture Indicated? Urine Glucose (NEGATIVE) mg/dL Urine HCG, Qual (Negative) Urine Opiates Level (NEGATIVE) Ur Methadone (NEGATIVE) Urine Barbiturates (NEGATIVE) Ur Phencyclidine (PCP) (NEGATIVE) Urine Amphetamine (NEGATIVE) U Benzodiazepine Level (NEGATIVE) Urine Cocaine (NEGATIVE) Urine Marijuana (THC) (NEGATIVE) - Progress Progress: improved, re-examined Progress Note: 03/28/22 09:56 She is given fluids and loading dose of Keppra. CT head cervical spine and lumbar spine are negative for any acute findings. Baseline work-up grossly unremarkable. Patient is back to her baseline on reevaluation and neuro exam is negative. We have called her primary neurologist Dr. Trejo and she will be getting a call for appointment for reevaluation to see if patient needs any adjustment in medication because had no seizure for 2 years and have twice in a week time. This could be due to recent noncompliance as well. Discussed signs symptoms of worsening needing return to ER which patient/ seem understanding. Counseled pt/family regarding: lab results, diagnosis, need for follow-up, rad results - Departure Departure Disposition: Home Clinical Impression: Seizure, Scalp contusion, Fall Condition: Stable Critical Care Time: No Referrals: HOMERO GUTIÉRREZ MD [Primary Care Provider] - Follow up/PCP as directed (1-2 days for reevaluation) LIA MENCHACA DO [NON-STAFF PHY W/O PRIVILEGES] - Follow up/PCP as directed (call for appointment) Instructions: Seizures, Adult (DC), Head Injury Observation (DC) Additional Instructions: Continue with your medications as recommended by neurology. Follow-up with your neurologist for reevaluation as early as possible. Return to ER if having recurrent seizures, fall, head injury etc. Follow head injury instructions.
[2022-03-28] MEDS ORDERED: Zofran 4 MG/2 ML VIAL ONE (07:41)
[2022-03-28] MEDS ORDERED: Sodium Chloride 0.9% 1000 ML 1,000 ML ONE (07:41)
[2022-03-28 07:51] LABS: Hematocrit 47.5 % (35-47); Hemoglobin 16.1 gm/dl (12.0-16.0); Mean Cell Volume 96.3 fl (78-100); Mean Corpuscular Hemoglobin 32.7 pg (26-32); Mean Corpuscular Hgb Concent. 33.9 g/dl (32-36); Mean Platelet Volume 10.4 fl (7.5-11.0); Platelet Count 196 K/mm3 (150-450); Red Blood Count 4.93 M/mm3 (4.1-5.4); Red Cell Distribution Width 12.7 % (11.5-14.0)
[2022-03-28 08:01] LABS: ALBUMIN 5.2 g/dL (3.5-5.0); ALKALINE PHOSPHATASE 93 U/L (38-126); ANION GAP 17.9 MEQ/L (5-15); BLOOD UREA NITROGEN 14 mg/dL (7-17); CHLORIDE 105 mmol/L (98-107); Calcium 10.2 mg/dL (8.4-10.2); Carbon Dioxide 23 mmol/L (22-30); Creatinine 1 0.57 mg/dL (0.52-1.04); EST GLOMERULAR FILTRATION RATE > 60.0 ML/MIN; Glucose 100 mg/dL (74-106); Potassium 4.3 mmol/L (3.5-5.1); SGOT/AST 31 U/L (14-36); SGPT/ALT 31 U/L (0-35); SODIUM 142 mmol/L (137-145)
[2022-03-28 08:22] LABS: Basophil 1 % (0.0-1.0); Eosinophil 2 % (0.00-3.0); Lymphocytes 28 % (24-44); Monocyte 1 % (0.0-12.0); Platelet Estimate NORMAL (NORMAL); Total Cells Counted 100
--- NOTE | 2022-03-28 08:41 | XRAY ---
Indication: Status post seizure with fall. Multiple contiguous axial images obtained through the head without contrast. Comparison: March 23, 2022 Normal appearing brain parenchyma, ventricles, and bony calvarium. Visualized paranasal sinuses and mastoid air cells are clear. Impression: Continued normal CT head without contrast exam.
--- NOTE | 2022-03-28 08:44 | XRAY ---
Indication: Status post seizure with fall. Multiple contiguous axial images obtained through the cervical spine. Sagittal and coronal reformatted images obtained. Comparison: None Axial images negative for acute fracture, suspicious bony lesions, or spinal canal stenosis. Minimal C6-C7 broad-based disc osteophyte complex. Sagittal and coronal reformatted images demonstrates normal alignment with vertebral body heights/disc spaces maintained. No acute compression fracture, subluxation, or jumped facet. Normal appearing craniocervical junction. Visualized noncontrasted soft tissues including lung apices are unremarkable. Impression: Minimal C6-C7 degenerative disc disease. Remaining CT cervical spine is normal.
--- NOTE | 2022-03-28 08:46 | XRAY ---
Indication: Status post seizure with fall. Multiple contiguous axial images obtained through the lumbar spine. Sagittal and coronal reformatted images obtained. Comparison: December 22, 2021 Axial images negative for acute fracture, suspicious bony lesions, large disc herniation, or spinal canal stenosis. Stable old right L1 transverse process fracture. Facets are symmetric. Sagittal and coronal reformatted images demonstrates normal alignment with vertebral body heights/disc spaces maintained. No acute compression fracture or subluxation. Visualized noncontrasted soft tissues unremarkable. Impression: Stable old right L1 transverse process fracture. Remaining CT lumbar spine is again normal.
[2022-03-28] MEDS ORDERED: TYLENOL EXTRA STRENGTH 500 MG PO STA (09:15)
[2022-03-28] MEDS ORDERED: TYLENOL EXTRA STRENGTH 500 MG ONE (09:17)
[2022-03-28 09:29] LABS: Epithelial Cells RARE /HPF (FEW); Mucus SLIGHT /HPF (NEGATIVE)
[2022-03-28 09:32] LABS: Appearance CLEAR (CLEAR); Bilirubin NEGATIVE (NEGATIVE); Glucose NEGATIVE (NEGATIVE); Ketones NEGATIVE (NEGATIVE); Nitrite NEGATIVE (NEGATIVE); Ph 5.5 (5-6); Protein,Urine Dip NEGATIVE (Negative); RBC NEGATIVE Ery/ul (0-5); Urobilinogen 0.2 mg/dL (0-1)
[2022-03-28 09:33] LABS: Dipstick done @ ? MAIN LAB
[2022-03-28 09:34] LABS: Bacteria FEW /HPF (NEGATIVE); RBC 0-2 /HPF (0-2); Urine Cultured Indicated? NO; WBC 0-2 /HPF (0-5)
[2022-03-28 09:42] LABS: Amphetamine,Urine NEGATIVE (NEGATIVE); Barbiturate,Urine NEGATIVE (NEGATIVE); Benzodiazepine,Urine NEGATIVE (NEGATIVE); Cocaine,Urine NEGATIVE (NEGATIVE); Methadone,Urine NEGATIVE (NEGATIVE); Opiate,Urine NEGATIVE (NEGATIVE); PCP,Urine NEGATIVE (NEGATIVE); THC,Urine NEGATIVE (NEGATIVE)
[2022-03-28 10:01] VITALS: O2SAT 98
[2022-03-28 10:09] VITALS: BP 95/62; PULSE 78
--- NOTE | 2022-03-28 10:43 | XRAY ---
Indication: Seizures. Comparison: December 14, 2021. Portable chest demonstrates new hazy right infrahilar infiltrate versus atelectasis. Remaining heart, lungs, and bony thorax unremarkable again with chronic minimal lingula fibrosis/scarring and metallic coils adjacent to aortic knob.
== END 2022-03-28 10:14 | disposition home or self-care (01) ==
LOC: ED 06:37
DX: G40.909 Epilepsy, unspecified, not intractable, without status epilepticus (principal); S00.03XA Contusion of scalp, initial encounter; W18.39XA Other fall on same level, initial encounter; Y92.149 Unspecified place in prison as the place of occurrence of the external cause; Y99.0 Civilian activity done for income or pay; Z79.899 Other long term (current) drug therapy
CPT/HCPCS: 36000; 36415; 70450; 71045; 72125; 72131; 80053; 80307; 81015; 83605; 84703; 85025; 93005; 93041; 96360; 96374; 99285; J1953; J2405; A9270-GY

== ENCOUNTER 2022-05-01 05:09 | Emergency (ER) | payer BC ==
[2022-05-01] MEDS ORDERED: MORPHINE SULFATE 4 MG INJ IM ONE (05:21)
--- NOTE | 2022-05-01 05:39 | ERPHSYRPT ---
- History of Present Illness Time Seen by Provider: 05/01/22 05:18 Source: patient Exam Limitations: no limitations Patient Subjective Stated Complaint: rt hip/back pain down to knee area Triage Nursing Assessment: pt c/o rt hip/back pain down to the knee, pt states, "it's sharp when putting weight on it but maddox otherwise". Pt got up to get a shower this morning and appeared fine, but after shower, the pain began hurting to hip area so bad that she could not bear weight on rt leg. No bruises or deformities noted. Pedal pulses present and strong. Physician History: 41-year-old female with history of seizure disorder presented to the ER with chief complaint of right hip pain sudden onset after taking shower this morning having difficulty weightbearing. Pain radiates to right knee. No fall or trauma. Does have some low back pain as well. Denies any numbness tingling or weakness of right lower extremity. Better with being still/resting and more with movements at right hip. Method of Injury: unknown Occurred: this morning Quality: sharpness Severity of Pain-Max: severe Severity of Pain-Current: severe Lower Extremities Pain: hip: right Modifying Factors: Improves With: immobilization. Worsens With: movement Associated Symptoms: unable to bear weight Allergies/Adverse Reactions: No Known Drug Allergies Allergy (Verified 05/01/22 05:27) Home Medications: Levetiracetam [Keppra] 500 mg PO BID 12/04/21 [History] Montelukast Sodium 10 mg [Singulair 10 MG] 10 mg PO DAILY 12/04/21 [History] Mv-Mn/Iron/Folic Acid/Herb 190 [Vitamin D3 Complete Caplet] 1 tab PO 2XW 03/28/22 [History] Hx Tetanus, Diphtheria Vaccination/Date Given: Yes Hx Influenza Vaccination/Date Given: No Hx Pneumococcal Vaccination/Date Given: No Immunizations Up to Date: Yes Travel Risk - International Travel Have you traveled outside of the country in past 3 weeks: No - Coronavirus Screening Are you exhibiting any of the following symptoms?: No Close contact with a COVID-19 positive Pt in past 14-21 Days: No - Vaccine Status Have you recieved a Covid-19 vaccination: No - Review of Systems Constitutional: No Symptoms Ears, Nose, & Throat: No Symptoms Respiratory: No Symptoms Cardiac: No Symptoms Abdominal/Gastrointestinal: No Symptoms Genitourinary Symptoms: No Symptoms Musculoskeletal: Back Pain, Joint Pain Skin: No Symptoms Neurological: No Symptoms Endocrine: No Symptoms Hematologic/Lymphatic: No Symptoms Immunological/Allergic: No Symptoms - Past Medical History Pertinent Past Medical History: Yes Neurological History: Seizures ENT History: No Pertinent History Cardiac History: Congenital Heart Disease, Other Respiratory History: Asthma, Pneumonia Endocrine Medical History: No Pertinent History Musculoskeletal History: Arthritis GI Medical History: No Pertinent History History: No Pertinent History Psycho-Social History: No Pertinent History Female Reproductive Disorders: Endometriosis - Past Surgical History Past Surgical History: Yes Neuro Surgical History: No Pertinent History Cardiac: Vascular Surgery Respiratory: No Pertinent History Gastrointestinal: No Pertinent History Genitourinary: No Pertinent History Musculoskeletal: Orthopedic Surgery Female Surgical History: No Pertinent History Other Surgical History: wrist surgery (plate and screws in rt wrist) 2016. 5 coils in heart between 2 valves in 2004 - Social History Smoking Status: Never smoker Exposure to second hand smoke: No Drug Use: none Patient Lives Alone: No Significant Family History: no pertinent family hx - Female History Hx Last Menstrual Period: 04/24/22 Hx Now: (unkln) - Nursing Vital Signs Nursing Vital Signs: Initial Vital Signs Temperature 97.3 F 05/01/22 05:15 Pulse Rate 82 05/01/22 05:15 Respiratory Rate 16 05/01/22 05:15 Blood Pressure 120/84 05/01/22 05:15 O2 Sat by Pulse Oximetry 95 05/01/22 05:15 Pain Scale Pain Intensity 6 - Physical Exam General Appearance: no apparent distress, alert, anxiety Neck Exam: normal inspection, full range of motion Cardiovascular/Respiratory Exam: normal breath sounds, regular rate/rhythm Gastrointestinal/Abdominal Exam: non-tender, soft, no organomegaly Hips Exam: right: limited range of motion, left: normal range of motion, bilateral: non-tender, normal inspection Legs Exam: bilateral leg: non-tender, normal inspection, normal range of motion, no evidence of injury Neuro/Tendon Exam: normal sensation, normal motor functions, normal tendon functions Mental Status Exam: alert, oriented x 3, cooperative Skin Exam: normal color SpO2 Interpretation: normal SpO2: 95 O2 Delivery: Room Air Ordered Tests: Medication Summary Discontinued Medications Generic Name Dose Route Start Last Admin Trade Name Freq PRN Reason Stop Dose Admin Morphine Sulfate 4 mg 05/01/22 05:21 05/31/22 05:56 Morphine Sulfate 4 Mg/Ml Injection IM 05/01/22 05:22 4 mg STAT ONE Administration Morphine Sulfate Confirm 05/01/22 05:55 Morphine Sulfate 4 Mg/Ml Injection Administered 05/01/22 05:56 Dose 4 mg .ROUTE .STK-MED ONE Lab/Rad Data: Laboratory Results 05/01/22 Range/Units 05:22 Urine HCG, Qual Cancelled - Progress Progress: improved Counseled pt/family regarding: diagnosis, need for follow-up, rad results - Departure Departure Disposition: Home Clinical Impression: Hip pain, right Condition: Stable Critical Care Time: No Referrals: HOMERO GUTIÉRREZ MD [Primary Care Provider] - Follow up/PCP as directed (1-2 days for re evaluation) ORTHO - JENNIFER TILLMAN NP [NON-STAFF PHY W/O PRIVILEGES] - Follow up/PCP as directed (1-2 days for re evaluation) Instructions: Hip Pain (DC) Additional Instructions: Take pain medications and muscle relaxants as needed. Weightbearing as tolerated. Follow-up with Ortho clinic for reevaluation. Return to ER for worsening pain, difficulty movements, numbness tingling weakness etc. Prescriptions: Cyclobenzaprine HCl 10 mg [Flexeril 10 MG] 10 mg PO TID #20 tablet Diclofenac Sodium 50 mg PO TID PRN 7 Days #30 tab PRN Reason: Pain
[2022-05-01] MEDS ORDERED: MORPHINE SULFATE 4 MG INJ ONE (05:55)
[2022-05-01 07:07] VITALS: BP 106/67; PULSE 56
--- NOTE | 2022-05-01 09:10 | XRAY ---
Indication: Pain. No known injury. Comparison: None AP pelvis and 2 view right hip demonstrates small bilateral superior acetabular spurring. No other bony, articular, or soft tissue abnormalities.
[2022-05-03 13:25] VITALS: O2SAT 95
== END 2022-05-01 07:07 | disposition home or self-care (01) ==
LOC: ED 05:09
DX: M25.551 Pain in right hip (principal); M54.50 Low back pain, unspecified
CPT/HCPCS: 73502; 96372; 99284; J2270

== ENCOUNTER 2023-01-07 04:54 | Emergency (ER) | payer BC ==
[2023-01-07 05:12] VITALS: O2SAT 95
--- NOTE | 2023-01-07 05:27 | ERPHSYRPT ---
- History of Present Illness Time Seen by Provider: 01/07/23 05:20 Source: patient Exam Limitations: no limitations Patient Subjective Stated Complaint: pt states she has been feeling short of breath since last yesterday evening. Triage Nursing Assessment: pt alert and oriented, answers questions appop. pt ambulates into room with slow steady gait noted. respirations nonlabored. lungs cta bilat. skin warm and dry. heart rate 78, sinus rhythm on monitor. Timing/Duration: yesterday Cough Quality/Degree: mild Possible Cause: occasional episodes Modifying Factors: Improves With: coughing Associated Symptoms: cough, shortness of breath Allergies/Adverse Reactions: fluticasone [From Advair Diskus] Adverse Reaction (Unknown, Verified 01/07/23 05:12) pt states causes pneumonia salmeterol [From Advair Diskus] Adverse Reaction (Unknown, Verified 01/07/23 05:12) pt states causes pneumonia Home Medications: Levetiracetam [Keppra] 750 mg PO BID 12/04/21 [History] Cholecalciferol (Vitamin D3) [Vitamin D3] 1,250 mcg PO UD 01/07/23 [History] Hx Tetanus, Diphtheria Vaccination/Date Given: Yes Hx Influenza Vaccination/Date Given: No Hx Pneumococcal Vaccination/Date Given: No Immunizations Up to Date: Yes Travel Risk - International Travel Have you traveled outside of the country in past 3 weeks: No - Coronavirus Screening Are you exhibiting any of the following symptoms?: Yes Symptoms: Shortness of Breath Close contact with a COVID-19 positive Pt in past 14-21 Days: No - Vaccine Status Have you recieved a Covid-19 vaccination: No - Review of Systems Constitutional: No Symptoms Eyes: No Symptoms Ears, Nose, & Throat: No Symptoms Respiratory: Cough, Dyspnea (mild) Cardiac: No Symptoms Abdominal/Gastrointestinal: No Symptoms Genitourinary Symptoms: No Symptoms Musculoskeletal: No Symptoms Skin: No Symptoms Neurological: No Symptoms Psychological: No Symptoms Endocrine: No Symptoms Hematologic/Lymphatic: No Symptoms Immunological/Allergic: No Symptoms All Other Systems: Reviewed and Negative - Past Medical History Pertinent Past Medical History: Yes Neurological History: Seizures ENT History: No Pertinent History Cardiac History: Congenital Heart Disease, Other Respiratory History: Asthma, Pneumonia Endocrine Medical History: No Pertinent History Musculoskeletal History: Arthritis GI Medical History: No Pertinent History History: No Pertinent History Psycho-Social History: No Pertinent History Female Reproductive Disorders: Endometriosis - Past Surgical History Past Surgical History: Yes Neuro Surgical History: No Pertinent History Cardiac: Vascular Surgery Respiratory: No Pertinent History Gastrointestinal: No Pertinent History Genitourinary: No Pertinent History Musculoskeletal: Orthopedic Surgery Female Surgical History: No Pertinent History Other Surgical History: wrist surgery (plate and screws in rt wrist) 2016. 5 coils in heart between 2 valves in 2004 - Social History Smoking Status: Never smoker Exposure to second hand smoke: No Drug Use: none Patient Lives Alone: No Significant Family History: no pertinent family hx - Female History Hx Last Menstrual Period: last month Hx Now: No - Nursing Vital Signs Nursing Vital Signs: Initial Vital Signs Temperature 97.1 F 01/07/23 05:04 Pulse Rate 75 01/07/23 05:04 Respiratory Rate 16 01/07/23 05:04 Blood Pressure 125/83 01/07/23 05:04 O2 Sat by Pulse Oximetry 95 01/07/23 05:04 Pain Scale Pain Intensity 7 - Physical Exam General Appearance: no apparent distress, alert, anxiety, thin Eye Exam: PERRL/EOMI, eyes nml inspection Ears, Nose, Throat Exam: normal ENT inspection, moist mucous membranes Neck Exam: normal inspection, non-tender, supple, full range of motion Respiratory Exam: normal breath sounds, chest tenderness (right lower ribs), lungs clear, airway intact, No respiratory distress Cardiovascular Exam: regular rate/rhythm, normal heart sounds, normal peripheral pulses Gastrointestinal/Abdomen Exam: soft, normal bowel sounds, No tenderness Pelvic Exam: not done Rectal Exam: not done Back Exam: normal inspection, normal range of motion, No CVA tenderness, No vertebral tenderness Extremity Exam: normal inspection, normal range of motion, pelvis stable Neurologic Exam: alert, oriented x 3, cooperative, survey manager II-XII nml as tested, normal mood/affect, nml cerebellar function, nml station & gait, sensation nml Skin Exam: normal color, warm, dry Lymphatic Exam: No adenopathy SpO2 Interpretation: normal SpO2: 95 O2 Delivery: Room Air - Course Nursing assessment & vital signs reviewed: Yes EKG Interpreted by Me: RATE (77), Sinus Rhythm, NORMAL AXIS, NORMAL INTERVALS, NORMAL QRS, Non-specific ST Changes, Other (no acute ischemic changes) Ordered Tests: Active Orders 24 hr Category Date Time Status CHEST 1 VIEW (PORTABLE) Stat Exams 01/07/23 05:32 Taken Lab/Rad Data: Laboratory Results 01/07/23 Range/Units 05:38 Influenza Type A Ag NEGATIVE (NEGATIVE) Influenza Type B Ag NEGATIVE (NEGATIVE) RSV (PCR) NEGATIVE (Negative) SARS-CoV-2 (PCR) NEGATIVE (NEGATIVE) - Progress Progress: re-examined Air Movement: good Progress Note: 01/07/23 06:32 Chest x-ray was interpreted by me. There is no evidence of any rib fractures. There is no acute cardiopulmonary process. Blood Culture(s) Obtained: No Antibiotics given: No Counseled pt/family regarding: lab results, diagnosis, need for follow-up, rad results - Departure Departure Disposition: Home Clinical Impression: Shortness of breath Condition: Stable Critical Care Time: No Referrals: HOMERO GUTIÉRREZ MD [Primary Care Provider] - Follow up/PCP as directed Additional Instructions: Continue medication as prescribed. Follow-up with your primary care physician for further evaluation managementDischarge/Care Plan LETI CASTELLANOS ISHAN was seen on 01/07/23 in the Emergency Room. The patient was counseled regarding Diagnosis,Lab results, Imaging studies, need for follow up and when to return to the Emergency Room. Prescriptions given: Discharge Note I have spoken with the patient and/or caregivers. I have explained the patient's condition, diagnosis and treatment plan based on the information available to me at this time. I have answered the patient's and/or caregiver's questions and addressed any concerns. The patient and/or caregivers have as good understanding of the patient's diagnosis, condition and treatment plan as can be expected at this point. The vital signs have been stable. The patient's condition is stable and appropriate for discharge from the emergency department. The patient will pursue further outpatient evaluation with the primary care physician or other designated or consulting physician as outlined in the discharge instructions. The patient and/or caregivers are agreeable to this plan of care and follow-up instructions have been explained in detail. The patient and/or caregivers have received these instruction. The patient/and or caregivers are aware that any significant change in condition or worsening of symptoms should prompt an immediate return to this or the closest emergency department or call 911.
[2023-01-07 06:36] LABS: INFLUENZA A NEGATIVE (NEGATIVE); INFLUENZA B NEGATIVE (NEGATIVE); RESPIRATORY SYNCTIAL VIRUS NEGATIVE (Negative); SARS-CoV-2 Xpert Express NEGATIVE (NEGATIVE)
[2023-01-07 07:28] VITALS: BP 121/83; PULSE 88
--- NOTE | 2023-01-07 09:08 | XRAY ---
Indication: Short of breath. Comparison: March 28, 2022 Portable chest unchanged again demonstrating minimal left base fibrosis/scarring and metallic coils adjacent to aortic knob. Bony thorax intact. No new/acute cardiopulmonary abnormalities.
== END 2023-01-07 07:37 | disposition home or self-care (01) ==
LOC: ED 04:54
DX: R06.02 Shortness of breath (principal); Z79.899 Other long term (current) drug therapy; Z28.310 Unvaccinated for COVID-19
CPT/HCPCS: 0241U; 71045; 99283

== ENCOUNTER 2025-06-24 16:03 | Emergency (ER) | payer BC ==
[2025-06-24 16:23] VITALS: TEMP 97.6
--- NOTE | 2025-06-24 16:29 | ERPHSYRPT ---
- History of Present Illness Time Seen by Provider: 06/24/25 16:16 Source: family Exam Limitations: clinical condition Patient Subjective Stated Complaint: 15-20 minute seizure Triage Nursing Assessment: Pt brought to the ER by her , vitals wnl, doesn't appear to be in any pain, pulses normal, unresponsive upon arrival and then pt had another tonic clonic seizure and is now responding to commands and speaking, had administered (2) 7.5 mg of intranasal Valtoco prior to getting to the due to her having a seizure for 15-20 minutes, pt c/o of a severe headache and states that it is worse than prior to the seizure, doesn't appear to have injured herself Physician History: 45-year-old female with history of seizure disorder is brought to the ER after patient had seizure for almost 10 to 15 minutes where gave intranasal 7.5 mg diazepam. Did not hit her head. She did have headache before this happened. Patient had another episode of generalized shaking this in the ER lasting for 15 to 20 seconds and improved and immediately afterwards patient was following commands and reported having severe headache. He is able to move all 4 extremities. No obvious deficit. Allergies/Adverse Reactions: fluticasone [From Advair Diskus] Adverse Reaction (Unknown, Verified 01/07/23 05:12) pt states causes pneumonia salmeterol [From Advair Diskus] Adverse Reaction (Unknown, Verified 01/07/23 05:12) pt states causes pneumonia Home Medications: Levetiracetam [Keppra] 750 mg PO BID 12/04/21 [History] Cholecalciferol (Vitamin D3) [Vitamin D3] 1,250 mcg PO UD 01/07/23 [History] Hx Tetanus, Diphtheria Vaccination/Date Given: Yes Hx Influenza Vaccination/Date Given: No Hx Pneumococcal Vaccination/Date Given: No Travel Risk - International Travel Have you traveled outside of the country in past 3 weeks: No - Emerging Infectious Disease Are you exhibiting symptoms associated with any current EIDs: No - Review of Systems All Other Systems: Unable due to condition - Past Medical History Pertinent Past Medical History: Yes Neurological History: Migraines, Seizures ENT History: No Pertinent History Cardiac History: Other Respiratory History: No Pertinent History Endocrine Medical History: No Pertinent History Musculoskeletal History: Fractures GI Medical History: No Pertinent History History: No Pertinent History Psycho-Social History: No Pertinent History Female Reproductive Disorders: Endometriosis Other Medical History: HX OF HOLE IN HEART TREATED WITH "COILS" IMPLANTED. STATES WAS RELEASED BY CARDIOLOGY 2009. HX FX LEFT FOREARM WITH PLATE AND SCREWS FOR FIXATION 2011 - Past Surgical History Past Surgical History: Yes Neuro Surgical History: No Pertinent History Cardiac: Vascular Surgery Respiratory: No Pertinent History Gastrointestinal: No Pertinent History Genitourinary: No Pertinent History Musculoskeletal: Orthopedic Surgery Female Surgical History: No Pertinent History Other Surgical History: wrist surgery (plate and screws in rt wrist) 2016. 5 coils in heart between 2 valves in 2004 Significant Family History: no pertinent family hx - Female History Hx Now: (unkn) - Social History Smoking Status: Never smoker Exposure to second hand smoke: No Drug Use: none - Social Determinants of Health Will the patient participate in the screening: Yes Do you worry about a steady place to live?: No Do you have any problems with any of the following?: No known problems In the past 12 months,have you had to go without utilities?: No Transportation Issues: No Has anyone in your support network made you feel unsafe?: No Have you or anyone in your house had to go w/o enough food: No - Nursing Vital Signs Nursing Vital Signs: Initial Vital Signs Temperature 97.6 F 06/24/25 16:04 Pulse Rate 75 06/24/25 16:04 Respiratory Rate 14 06/24/25 16:04 Blood Pressure 111/75 06/24/25 16:04 O2 Sat by Pulse Oximetry 95 06/24/25 16:04 Pain Scale Pain Intensity 0 - Tracy Coma Scale Best Eye Response (Tracy): (3) open to voice Best Verbal Response (David): (5) oriented Best Motor Response (Tracy): (6) obeys commands David Total: 14 - Physical Exam General Appearance: no apparent distress, other (Sleepy) Eye Exam: bilateral eye: normal inspection, PERRL, EOMI Ears, Nose, Throat Exam: normal ENT inspection, TMs normal, pharynx normal, moist mucous membranes Neck Exam: normal inspection, non-tender, supple, full range of motion Respiratory: normal breath sounds, lungs clear Cardiovascular: regular rate/rhythm, normal heart sounds Gastrointestinal: soft, normal bowel sounds, No tenderness Back Exam: normal inspection Extremity Exam: normal inspection, normal range of motion Mental Status: 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, 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 Exam: normal hearing, PERRL Motor/Sensory: negative Babinski's sign Skin Exam: normal color SpO2 Interpretation: normal SpO2: 95 O2 Delivery: Room Air Ordered Tests: Active Orders 24 hr Category Date Time Status Rn Oncology STAT Care 06/24/25 16:18 Completed IV Insertion STAT Care 06/24/25 16:17 Completed CHEST 1 VIEW (PORTABLE) Stat Exams 06/24/25 16:18 Completed HEAD WITHOUT CONTRAST [CT] Stat Exams 06/24/25 16:35 Completed CBC W DIFF Stat Lab 06/24/25 16:40 Completed CK-Creatinine Phosphokinase Stat Lab 06/24/25 16:40 Completed CMP Stat Lab 06/24/25 16:40 Completed Lactic Acid Stat Lab 06/24/25 16:30 Completed MAGNESIUM Stat Lab 06/24/25 16:40 Completed Medication Summary Discontinued Medications Generic Name Dose Route Start Last Admin Trade Name Freq PRN Reason Stop Dose Admin Amoxicillin/Clavulanate Potassium 875 mg 06/24/25 17:47 06/24/25 17:54 Amox Tr/Potassium Clavulanate 875 Mg Tablet PO 06/24/25 17:48 875 mg STAT ONE Administration Amoxicillin/Clavulanate Potassium Confirm 06/24/25 17:53 Amox Tr/Potassium Clavulanate 875 Mg Tablet Administered 06/24/25 17:54 Dose 875 mg .ROUTE .STK-MED ONE Sodium Chloride 1,000 mls @ 999 mls/hr 06/24/25 16:17 06/24/25 17:25 Sodium Chloride 0.9% 1000 Ml IV 06/24/25 17:17 Infused .Q1H1M STA Infusion Sodium Chloride Confirm 06/24/25 16:22 Sodium Chloride 0.9% 1000 Ml Administered 06/24/25 16:23 Dose 1,000 mls @ ud .ROUTE .STK-MED ONE Lab/Rad Data: Laboratory Result Diagrams 06/24/25 16:40 06/24/25 16:40 Laboratory Results 06/24/25 06/24/25 06/24/25 Range/Units 16:40 16:40 16:30 WBC 11.5 H (3.98-10.04) x10^3/uL RBC 4.45 (3.93-5.22) x10^6/uL Hgb 14.8 (11.2-15.7) g/dL Hct 44.9 (34.1-44.9) % MCV 100.9 H (79.4-94.8) fL MCH 33.3 H (25.6-32.2) pg MCHC 33.0 (32.2-35.5) g/dL RDW 12.7 (11.7-14.4) % Plt Count 177 L (182-369) x10^3/uL MPV 10.3 (9.4-12.3) fL Gran % 65.5 (34.0-71.1) % Immature Gran % (Auto) 0.3 (0.001-0.429) % Nucleat RBC Rel Count 0.0 (0.00-0.2) % Eos # (Auto) 0.42 H (0.04-0.36) x10^3/uL Immature Gran # (Auto) 0.03 (0.001-0.031) x10^3u/L Absolute Lymphs (auto) 2.70 (1.18-3.74) x10^3/uL Absolute Monos (auto) 0.73 (0.24-0.86) x10^3/uL Absolute Nucleated RBC 0.00 (0.00-0.012) x10^3u/L Lymphocytes % 23.5 (19.3-51.7) % Monocytes % 6.3 (4.7-12.5) % Eosinophils % 3.6 (0.7-5.8) % Basophils % 0.8 (0.1-1.2) % Absolute Granulocytes 7.54 H (1.56-6.13) x10^3/uL Basophils # 0.09 H (0.01-0.08) x10^3/uL Sodium 143 (135-145) mmol/L Potassium 4.0 (3.5-5.1) mmol/L Chloride 114 H (98-107) mmol/L Carbon Dioxide 17 L (22-30) mmol/L Anion Gap 16.0 H (5-15) MEQ/L BUN 6 L (7-17) mg/dL Creatinine 0.52 (0.52-1.04) mg/dL Estimated GFR 116.7 ML/MIN Glucose 143 H (74-106) mg/dL Lactic Acid 2.5 H (0.4-2.0) Calcium 9.3 (8.4-10.2) mg/dL Magnesium 2.4 H (1.6-2.3) mg/dL Total Bilirubin 0.50 (0.2-1.3) mg/dL AST 35 (14-36) U/L ALT 36 H (0-35) U/L Alkaline Phosphatase 80 (38-126) U/L Creatine Kinase 66 (30-135) U/L Serum Total Protein 8.4 H (6.3-8.2) g/dL Albumin 4.8 (3.5-5.0) g/dL - Progress Progress: improved, re-examined Progress Note: 06/24/25 17:48 Differential diagnosis: Breakthrough seizure, status epilepticus, sepsis, acute electrolyte abnormality, head injury, migraine 45-year-old with history of seizure disorder is evaluated in the ER for seizure prior to arrival for which she received 2 nasal sprays of 7.5 mg Valium. Patient was sleepy on presentation, she did have another brief episodes of generalized shaking lasting for few seconds and improved. Immediately afterward patient was awake alert and responding/following commands. No focal neurodeficit. Since she did hit her head hard per I have obtained CT head which is negative for any acute findings. She is given fluid bolus, feeling better on reevaluation. Workup showed white count of 11, chemistries with lactate of 2.5, mild dehydration and no acute derangements in electrolytes. Chest x-ray showed questionable infiltrates in the middle lobe of right lung interpreted by me followed by official read. I would start her on Augmentin. On reevaluation patient is awake alert and oriented, at her baseline, recommended observation/transfer to facility with neurology services, patient does not want to stay in the hospital, does have appointment with her neurologist on Saturday morning which she would follow-up. Patient reports she having seizure almost on a weekly basis but this time she had some headache which was worse than usual. Usually seizures are after she had a headache. Neuroexam is nonfocal. Patient and both like to go home, went over in detail about the risk of leaving without further evaluation would not only delay diagnosis but worsening of condition and could be life-threatening which they understand but still want to go. I recommended continue with current medications and keep appointment for neurology evaluation. Patient is being discharged. Discussed signs symptoms of worsening leg return to ER which patient and her seem understanding. Complexity of problems addressed: High acuity Complexity of data reviewed/analyzed: Extensive Risk of complication: Low to moderate 06/24/25 17:52 Counseled pt/family regarding: diagnosis, need for follow-up, rad results Medical Desision Making - Independent Historian Additional History obtained from: Spouse - Diagnostic Testing Diagnostic test were ordered, analyzed, and reviewed by me: Yes Radiological Interpretation: Interpreted by me, Reviewed by me - Risk of complications The pt has a mod risk of morbidity or mortality based on: Need for prescription drug management - Departure Departure Disposition: Home Clinical Impression: Aspiration pneumonia, Seizure Condition: Stable Critical Care Time: No Referrals: HOMERO GUTIÉRREZ MD [Primary Care Provider, [facility]] - Follow up with PCP 1 day Instructions: Seizures, Adult (DC), Pneumonia, Adult (DC) Additional Instructions: Continue with your current seizure medications. Follow-up with primary care and neurology for reevaluation. Stay with responsible person for next 48 hours with frequent neurochecks. Return to ER if again having seizures, not acting her baseline, intractable vomiting/headache etc. Prescriptions: Amox Tr/Potass Clav. 875 mg [Augmentin 875-125 Tablet] 875 mg PO BID #20 tablet
[2025-06-24 16:40] LABS: BASOPHIL % 0.8 % (0.1-1.2); Basophil (Absolute #) 0.09 x10^3/uL (0.01-0.08); Eosinophil (Absolute #) 0.42 x10^3/uL (0.04-0.36); Hematocrit 44.9 % (34.1-44.9); Hemoglobin 14.8 g/dL (11.2-15.7); IMMATURE GRAN # 0.03 x10^3u/L (0.001-0.031); IMMATURE GRAN % 0.3 % (0.001-0.429); Lymphocyte (Absolute #) 2.70 x10^3/uL (1.18-3.74); Mean Corpuscular Hemoglobin 33.3 pg (25.6-32.2); Mean Corpuscular Hgb Concent. 33.0 g/dL (32.2-35.5); Monocyte (Absolute #) 0.73 x10^3/uL (0.24-0.86); NUCLEATED RBC # 0.00 x10^3u/L (0.00-0.012); NUCLEATED RBC % 0.0 % (0.00-0.2); Platelet Count 177 x10^3/uL (182-369); Red Blood Count 4.45 x10^6/uL (3.93-5.22); White Blood Count 11.5 x10^3/uL (3.98-10.04)
[2025-06-24 16:52] LABS: CK-Creatinine Phosphokinase 66.0 U/L (30-135); Calcium 9.3 mg/dL (8.4-10.2); Carbon Dioxide 17.0 mmol/L (22-30); Creatinine 1 0.52 mg/dL (0.52-1.04); EST GLOMERULAR FILTRATION RATE 116.7 ML/MIN; Glucose 143.0 mg/dL (74-106); SGOT/AST 35.0 U/L (14-36); SGPT/ALT 36.0 U/L (0-35); Total Protein 8.4 g/dL (6.3-8.2)
[2025-06-24 16:53] LABS: Potassium 4.0 mmol/L (3.5-5.1)
--- NOTE | 2025-06-24 16:56 | XRAY ---
Indication: Seizure. Aspiration. Comparison: January 07, 2023 Portable apical lordotic chest demonstrates new right middle lobe and lesser degree left infrahilar infiltrates/atelectasis. Remaining heart and lungs unremarkable. Bony thorax intact.
--- NOTE | 2025-06-24 17:06 | XRAY ---
Indication: Seizure. Head injury. Multiple contiguous axial images of the head without contrast. Comparison: March 28, 2022 Normal appearing brain parenchyma, ventricles, and bony calvarium for patient's age. Visualized paranasal sinuses and mastoid air cells are clear. Impression: Continued normal CT head without contrast exam.
[2025-06-24 17:53] VITALS: O2SAT 95
[2025-06-24] MEDS ORDERED: Augmentin 875-125 Tablet ONE (17:53)
[2025-06-24] MEDS: Augmentin 875-125 Tablet PO ONE (17:54)
[2025-06-24 17:57] VITALS: PULSE 79; RESP 14
[2025-06-24 18:07] VITALS: BP 105/69
== END 2025-06-24 18:07 | disposition home or self-care (01) ==
LOC: ED 16:03
DX: G40.909 Epilepsy, unspecified, not intractable, without status epilepticus (principal); J69.0 Pneumonitis due to inhalation of food and vomit; Z79.899 Other long term (current) drug therapy